=== PATIENT | female | born 1940 | race Caucasian/White ===

== ENCOUNTER 2016-06-23 08:47 | Emergency (ER) | payer OTHER, MEDICARE ==
[2016-06-23] MEDS ORDERED: NS 1,000 ML IV ONE (09:02)
[2016-06-23 09:07] LABS: % IMMATURE GRANULYOCYTES 0.2 % (0.0-1.1); ABSOLUTE IMMATURE GRANULOCYTES 0.01 10^3/uL (0.00-0.10); ADD DIFF? NO; ADD MORPH? NO; ADD SCAN? NO; ATYPICAL LYMPHOCYTE FLAG 10 (0-99); FRAGMENT RBC FLAG 0 (0-99); HEMATOCRIT 43.4 % (38.0-47.0); HEMOGLOBIN 14.6 g/dL (12.6-16.3); LEFT SHIFT FLG 0 (0-99); LIPEMIA HEMOLYSIS FLAG 80 (0-99); MEAN CELL HEMOGLOBIN 29.9 pg (27.9-34.1); MEAN CELL HEMOGLOBIN CONCENTR. 33.6 g/dL (32.4-36.7); MEAN CELL VOLUME 88.9 fL (81.5-99.8); PLATELET CLUMPS FLAG 0 (0-99); PLATELET COUNT 229 10^3/uL (150-400); RED BLOOD CELL COUNT 4.88 10^6/uL (4.18-5.33); RED CELL DISTRIBUTION WIDTH 12.6 % (11.5-15.2)
--- NOTE | 2016-06-23 09:16 | EDPHY ---
H & P Stated Complaint: Found down at the [facility] Source: Patient Exam Limitations: Other (HPI somewhat limited due to memory impairment) - Personal History Tetanus Vaccine Date: < 10 YEARS - Medical/Surgical History Hx Asthma: No Hx Chronic Respiratory Disease: No Hx Diabetes: No Hx Cardiac Disease: No Hx Renal Disease: No Hx Cirrhosis: No Hx Alcoholism: No Hx HIV/AIDS: No Hx Splenectomy or Spleen Trauma: No Other PMH: Brain metastases status post resection of brain tumor 30 years ago, residual left-sided facial droop, seizure disorder, gait instability, Alzheimer' s, chronic dementia, rt knee replacement, left arthritic knee, aspiration pneumonia, gait instability - Family History Significant Family History: Other (Father had [place], mother had lung cancer) - Social History Smoking Status: Never smoked Alcohol Use: Other (Previous ETOH abuse, none now) Drug Use: None Time Seen by Provider: 06/23/16 09:13 HPI/ROS: HPI: Pleasantly demented 75-year-old female presents to emergency department brought in by EMS from the [facility] where she lives with chief concern she was found down on floor with complaints of dizziness. Patient reports feeling dizzy this morning when she stood up, and falling to the floor. She was down for unknown length of time before a staff member at the [facility] found her. When they found her, her blood pressure was 80/60 standing. EKG was obtained at that time and was normal. Presently, she denies headache, visual changes, neck pain, URI symptoms, shortness of breath, chest pain, abdominal pain, nausea , vomiting, diarrhea, urinary symptoms, back or flank pain, or rash. ROS:10 point review of systems is negative other than as stated in HPI (Maira Morris) - Social History Additional Social History: Lives at the [facility], retired RN, full core (Maira Morris) - Physical Exam Exam: 112/75, 77, 18, 89% room air, 2 L 95% General: Awake, alert, calm, cooperative. No acute distress. Head: Normalocephalic. Atraumatic. Face: Atraumatic EENT: PERRLA. EOMI. No pallor or injection. Anicteric. No nystagmus. No injection. TMs intact bilaterally with normal landmarks. No rhinnorhea, nasal passages clear. Oropharynx without redness, exudates, or lesions. Tonsils 2+ bilaterally, no exudates. Neck: Supple, no midline tenderness. No lymphadenopathy. Full range of motion. No meningismus. Respiratory: Breathing unlabored. Breath sounds with rales right lower lobe, otherwise clear. CV: Chest nontender, atraumatic. Heart rate regular. No murmur, distal pulses 2+ bilaterally. No edema. Brisk cap refill all extremities. GI: Abdomen soft, nontender. Bowel sounds normoactive and positive x4 quadrants. : No suprapubic tenderness. No CVA or flank tenderness. Neuro: Alert. Oriented to person and place. Speech clear. Right sided facial droop. Strength 4+ in all extremities. Sensation intact all extremities. Skin: Skin warm, dry, intact. No rashes, abrasions, or lacerations. Skin turgor normal. Extremities: Full range of motion in all 4 extremities. Strength 5+ all extremities. (Maira Morris) Constitutional: Initial Vital Signs Heart Rate 77 06/23/16 09:19 Respiratory Rate 18 06/23/16 09:19 Blood Pressure 112/75 06/23/16 09:19 O2 Sat (%) 89 L 06/23/16 09:19 O2 Delivery Mode Room Air O2 (L/minute) 2 Allergies/Adverse Reactions: clotrimazole Allergy (Verified 03/26/16 13:10) modafinil [From Provigil] Allergy (Verified 03/26/16 13:10) Home Medications: Medication Instructions Recorded Amoxicillin/Clavulanate Pot 03/26/16 [Augmentin 875 MG TAB (*)] Aspirin 03/26/16 Clobetasol 0.05% 03/26/16 Doc-Q-Lace 03/26/16 Donepezil HCl 03/26/16 Ipratropium 0.03% Nasal 03/26/16 LEVETIRACETAM 03/26/16 Meloxicam 03/26/16 Nadolol 03/26/16 Namenda Xr 03/26/16 Nystatin 03/26/16 Polyethylene Glycol 3350 03/26/16 Preservision Lutein Softgel 03/26/16 SIMVASTATIN 03/26/16 Vitamin D3 03/26/16 Medical Decision Making - Diagnostics Imaging: AP and Lateral Chest 9:10 Indication: Memory problems. Comparison: Two-view chest dated March 26, [address] chest dated January 30, 2016 Findings: Diffuse peribronchial thickening, bronchiectasis and scarring in the right middle lobe and lingula have not significantly changed. No pulmonary edema, consolidation, or effusion has developed. The heart size is upper normal. Impression: 1. No acute process. 2. Chronic airways disease and bronchiectasis suspicious for underlying Mycobacterium avium intracellulare is unchanged. Dictated By: Erick Matute MD \CT Brain Without Contrast 0 924 hours History: Recent fall. Dementia. Impression: 1. Moderate atrophy. 2. No acute hemorrhage, mass effect, or definite acute peripheral infarct. 3. Mild to moderate microvascular ischemic disease. 4. Subtle focus of increased density right inferolateral cerebellum that could be related to previous hemorrhage similar to the prior study. Of note, on the prior MRI exam there are numerous signal voids in the posterior fossa more prominent on the right side possibly from underlying amyloid angiopathy, cavernous hemangiomas, or previous vascular insult. 5. Previous resection left anterolateral occipital bone from previous meningioma resection. Dictated By: Bernard Mclaughlin MD (Maira Morris) ED Course/Re-evaluation: 0915: 75-year-old pleasantly demented female presents to emergency department brought in by EMS having been found down at the [facility] where she lives. When she was found down, she complained of dizziness. Blood pressure standing at that time was 80/60. She reports that she remembers feeling dizzy and falling, but is unsure whether she struck her head. She denies headache presently. No evidence of trauma. IV started. Normal saline hung. Labs, EKG, chest x-ray, urinalysis, CT head without all pending. Patient is a full cor. 0930: Caregiver presents to emergency department and states that patient was fasting for labs. Additionally, she was to have a swallow study today as there is concern she is aspirating. 1040: White count 4510. Basic metabolic pelvic panel unremarkable. Chest x-ray shows chronic airway disease, bronchiectasis, no change from previous x-ray. EKG shows sinus rhythm 68. No evidence of acute ischemia. CT shows nothing acute. Urinalysis negative for UTI. Repeat orthostatics after normal saline show the patient is no longer orthostatic. She is chronically on 2 L O2 nasal cannula, previous ED visit show she has 89% on room air. Patient will be discharged back to the [facility]. (Maira Morris) Differential Diagnosis: Differential diagnosis includes but is not limited to orthostasis, dehydration TIA, CVA, ACS, UTI, pneumonia, metabolic derangement (Maira Morris) Other Provider: PHYSICIAN HISTORY AND PHYSICAL I evaluated and participated in the management of the patient. I also evaluated the patient independently. My co-signature indicates that I have reviewed this chart and I agree with the findings and plan of care as documented. My personal H&P findings include: The patient presents to the ED after an episode of syncope. The patient reportedly had been fasting today for outpatient laboratory studies. She developed an episode of syncope earlier today. The patient has had no history of fever or cough. The patient does have a history of reflux and has had issues with chronic aspiration. She is currently on oxygen at night. The patient denies additional complaints. PHYSICAL EXAM General Appearance: Alert, no distress Eyes: Pupils equal and round no pallor or injection ENT, Mouth: Mucous membranes moist Respiratory: There are no retractions, lungs are clear to auscultation Cardiovascular: Regular rate and rhythm Gastrointestinal: Abdomen is soft and nontender, no masses, bowel sounds normal Neurological: A&O, normal motor function, normal sensory exam, normal cranial nerves Skin: Warm and dry, no rashes Musculoskeletal: Neck is supple nontender Extremities: symmetrical, full range of motion PHYSICIAN MEDICAL DECISION MAKING I evaluated the patient, the patient's lungs are clear to auscultation bilaterally. Her chest x-ray demonstrates no evidence of an obvious infiltrate by my interpretation. The patient has no acute respiratory complaints. The patient does have chronic mild hypoxemia that she takes oxygen as needed for. At this point time she has no fever, no cough or significant respiratory complaints. I see no indication for antibiotics. She is otherwise well- appearing. Her EKG demonstrates no evidence of an arrhythmia. She presents to the ED after a likely vasovagal episode in the setting of hypovolemia from fasting. In the ED she received a L of normal saline. She had no recurrent hypotension or symptoms of syncope. Her outpatient laboratory studies have been sent. She will be discharged home and follow up as scheduled with her primary care provider. (Kelechi Mckeon) - Data Points Laboratory Results: Laboratory Results 06/23/16 08:45 06/23/16 08:45 06/23/16 06/23/16 06/23/16 09:52 08:45 08:00 WBC 4.51 10^3/uL (3.80-9.50) RBC 4.88 10^6/uL (4.18-5.33) Hgb 14.6 g/dL (12.6-16.3) Hct 43.4 % (38.0-47.0) MCV 88.9 fL (81.5-99.8) MCH 29.9 pg (27.9-34.1) MCHC 33.6 g/dL (32.4-36.7) RDW 12.6 % (11.5-15.2) Plt Count 229 10^3/uL (150-400) MPV 10.0 fL (8.7-11.7) Neut % (Auto) 77.0 H % (39.3-74.2) Lymph % (Auto) 8.6 L % (15.0-45.0) [place] % (Auto) 11.1 % (4.5-13.0) Eos % (Auto) 2.4 % (0.6-7.6) Baso % (Auto) 0.7 % (0.3-1.7) Nucleat RBC Rel Count 0.0 % (0.0-0.2) Absolute Neuts (auto) 3.47 10^3/uL (1.70-6.50) Absolute Lymphs (auto) 0.39 L 10^3/uL (1.00-3.00) Absolute Monos (auto) 0.50 10^3/uL (0.30-0.80) Absolute Eos (auto) 0.11 10^3/uL (0.03-0.40) Absolute Basos (auto) 0.03 10^3/uL (0.02-0.10) Absolute Nucleated RBC 0.00 10^3/uL (0-0.01) Immature Gran % 0.2 % (0.0-1.1) Immature Gran # 0.01 10^3/uL (0.00-0.10) PT 12.8 SEC (12.0-15.0) INR 0.97 (0.83-1.16) APTT 30.3 SEC (23.0-38.0) Sodium 141 mEq/L (134-144) Potassium 4.1 mEq/L (3.5-5.2) Chloride 104 mEq/L (97-110) Carbon Dioxide 28 mEq/l (22-31) Anion Gap 9 mEq/L (8-16) BUN 18 mg/dL (7-23) Creatinine 0.6 mg/dL (0.6-1.0) Estimated GFR > 60 Glucose 110 H mg/dL (70-100) Calcium 9.2 mg/dL (8.5-10.4) Total Bilirubin 0.7 mg/dL (0.1-1.4) Triglycerides 114 mg/dL (35-135) Cholesterol 192 mg/dL (140-220) Cholesterol Risk Factr 0.6 (0.2-1.0) LDL Cholesterol, Calc 115 H mg/dL (80-100) LDL Risk Factor 0.8 (0.2-1.0) VLDL Cholesterol 22 mg/dL (8-25) Non-HDL Cholesterol 137 H mg/dL (90-129) HDL Cholesterol 55 mg/dL (40-85) LDL/HDL Ratio 2.09 RATIO (1.00-3.22) Cholesterol/HDL Ratio 3.49 RATIO (1.00-4.44) 25-OH Vitamin D Total Pending TSH Pending Urine Color YELLOW Urine Appearance CLEAR Urine pH 7.0 (5.0-7.5) Ur Specific [place] 1.019 (1.002-1.030) Urine Protein NEGATIVE (NEGATIVE) Urine Ketones NEGATIVE (NEGATIVE) Urine Blood NEGATIVE (NEGATIVE) Urine Nitrate NEGATIVE (NEGATIVE) Urine Bilirubin NEGATIVE (NEGATIVE) Urine Urobilinogen 2.0 H EU (0.2-1.0) Ur Leukocyte Esterase NEGATIVE (NEGATIVE) Ur Culture Indicated? NOT INDICATED (NI) Urine Glucose NEGATIVE (NEGATIVE) Medications Given: Discontinued Medications Sodium Chloride (Ns) 1,000 mls @ 0 mls/hr IV ONCE ONE PRN Reason: Wide Open Stop: 06/23/16 09:03 Last Admin: 06/23/16 09:14 Dose: 1,000 mls Departure - Departure Disposition: Home, Routine, Self-Care Clinical Impression: Dizziness, Orthostasis Chronic dementia Qualifiers: Dementia behavioral disturbance: without behavioral disturbance Qualifier Code : (F03.90) Unspecified dementia without behavioral disturbance Condition: Good Instructions: Dizziness (ED), Hypotension (ED) Additional Instructions: Plan: Follow up with primary care tomorrow for recheck without fail Return to ER for worsening symptoms including dizziness, shortness of breath Referrals: Laura Parekh MD [Primary Care Provider] - As per Instructions
[2016-06-23 09:21] LABS: ANION GAP 9 mEq/L (8-16); CALCIUM 9.2 mg/dL (8.5-10.4); CARBON DIOXIDE 28 mEq/l (22-31); CHLORIDE 104 mEq/L (97-110); CREATININE 0.6 mg/dL (0.6-1.0); GLOMERULAR FILTRATION RATE > 60; GLUCOSE 110 mg/dL (70-100); POTASSIUM 4.1 mEq/L (3.5-5.2); SODIUM 141 mEq/L (134-144)
[2016-06-23 09:22] VITALS: RESP 18
--- NOTE | 2016-06-23 09:49 | CPEKG ---
Heart Rate: 68 RR Interval: 882 P-R Interval: 176 QRSD Interval: 76 QT Interval: 424 QTC Interval: 451 P [place]: 24 QRS [place]: -11 T Wave [place]: 35 EKG Severity - BORDERLINE ECG - EKG Impression: SINUS RHYTHM EKG Impression: BORDERLINE R WAVE PROGRESSION, ANTERIOR LEADS Electronically Signed By: Kelechi Mckeon 23-Jun-2016 10:16:28
--- NOTE | 2016-06-23 10:01 | CT ---
CT Brain Without Contrast 0 924 hours History: Recent fall. Dementia. Technique: Axial computed tomographic images of the brain without contrast. Images were reconstruct ed down to 1.25 mm slice thickness. Dose reduction techniques were utilized. Comparison prior CT study from March 26, 2016 and prior MRI study from July 03, 2014. Findings: Ventricles, cisterns, and sulci are widened consistent with stable mild age-related atroph y. No hydrocephalus, masses, midline shift/herniation, or subdural hematomas. No intraparenchymal hem orrhage or mass effect. There is a stable tiny focus of increased density right inferior lateral cere bellum that could be related to previous hemorrhage or cavernous hemangioma. Stable mild hypodensitie s are seen in the white matter of bilateral cerebral hemispheres. There is no acute peripheral cereb ral infarct seen. Arteriosclerotic calcifications are noted associated with distal ICA in the parase llar location bilaterally. Bone windows demonstrate no displaced fractures. There is stable surgical resection left anterolatera l occipital bone from previous meningioma resection as well as resection left mastoid region. Paranasal sinuses and mastoid air cells are clear. Impression: 1. Moderate atrophy. 2. No acute hemorrhage, mass effect, or definite acute peripheral infarct. 3. Mild to moderate microvascular ischemic disease. 4. Subtle focus of increased density right inferolateral cerebellum that could be related to previous hemorrhage similar to the prior study. Of note, on the prior MRI exam there are numerous signal void s in the posterior fossa more prominent on the right side possibly from underlying amyloid angiopathy , cavernous hemangiomas, or previous vascular insult. 5. Previous resection left anterolateral occipital bone from previous meningioma resection. These findings were discussed by telephone with Maira Morris NP at 0 959 hours.
[2016-06-23 10:06] LABS: BILIRUBIN,TOTAL 0.7 mg/dL (0.1-1.4); INR 0.97 (0.83-1.16); PROTIME(PATIENT) 12.8 SEC (12.0-15.0)
[2016-06-23 10:07] LABS: APTT 30.3 SEC (23.0-38.0)
--- NOTE | 2016-06-23 10:10 | DX ---
AP and Lateral Chest 9:10 Indication: Memory problems. Comparison: Two-view chest dated March 26, [address] chest dated January 30, 2016 Findings: Diffuse peribronchial thickening, bronchiectasis and scarring in the right middle lobe and lingula have not significantly changed. No pulmonary edema, consolidation, or effusion has developed. The heart size is upper normal. Impression: 1. No acute process. 2. Chronic airways disease and bronchiectasis suspicious for underlying Mycobacterium avium intracell ulare is unchanged.
[2016-06-23 10:11] LABS: COLOR YELLOW; LEUKOCYTE ESTERASE,URINE NEGATIVE (NEGATIVE); NITRITE,URINE NEGATIVE (NEGATIVE)
[2016-06-23 10:27] LABS: CHOLESTEROL 192 mg/dL (140-220); CHOLESTEROL/HDL RATIO 3.49 RATIO (1.00-4.44); HIGH DENSITY LIPOPROTEIN 55 mg/dL (40-85); LDL/HDL RATIO 2.09 RATIO (1.00-3.22); LOW DENSITY LIPOPROTEIN 115 mg/dL (80-100); NON-HIGH DENSITY LIPOPROTEIN 137 mg/dL (90-129); TRIGLYCERIDE 114 mg/dL (35-135); VERY LOW DENSITY LIPOPROTEINS 22 mg/dL (8-25)
[2016-06-23 10:43] LABS: VITAMIN D 25-HYDROXY TOTAL 38.9 ng/mL (30-100)
[2016-06-23 11:09] VITALS: BP 122/75; PULSE 74; TEMP 98.8; O2SAT 90
== END 2016-06-23 11:09 | disposition home or self-care (01) ==
LOC: EDUNIT#
DX: I95.1 Orthostatic hypotension (principal); F03.90 Unspecified dementia, unspecified severity, without behavioral disturbance, psychotic disturbance, mood disturbance, and anxiety; Z79.82 Long term (current) use of aspirin

== ENCOUNTER 2016-06-23 20:50 | Inpatient (IN) | payer OTHER, MEDICARE ==
--- NOTE | 2016-06-23 20:57 | EDPHY ---
H & P HPI/ROS: HPI CHIEF COMPLAINT: Generalized weakness, nausea, recurrent falls, seen in the ER earlier HISTORY OF PRESENT ILLNESS: This patient is a 75-year-old female she was recently here in the emergency room early this morning, she has a past medical history for Alzheimer's dementia, seizure, right-sided residual weakness from brain tumor resection years ago pneumonia, aspiration pneumonia, presents back to the emergency room this evening after she is having generalized weakness, and recurrent falls. She lives at the [facility] her caretakers at bedside explains that all day today she has been weak, having a very unsteady gait and falling Re currently. It is noted upon arrival here to the emergency room that she is febrile to 38.4. The patient tells me she has no complaints. Specifically she denies chest pain, shortness of breath, headache, nausea or vomiting. She does complain of generalized weakness. Past Medical History: Alzheimer's dementia, aspiration pneumonia, right-sided weakness residual weakness from brain tumor resection, seizure Past Surgical History:Brain tumor resection 30 years ago Social History: Lives at [facility] Family History: noncontributory ROS REVIEW OF SYSTEMS: A comprehensive 10 point review of systems is otherwise negative aside from elements mentioned in the history of present illness. Exam Constitutional appears dehydrated, triage nursing summary reviewed, vital signs reviewed, awake/alert. Eyes normal conjunctivae and sclera, EOMI, PERRLA. HENT normal inspection, atraumatic, moist mucus membranes, no epistaxis, neck supple/ no meningismus, no raccoon eyes. Respiratory clear to auscultation bilaterally, normal breath sounds, no respiratory distress, no wheezing. Cardiovascular rate normal, regular rhythm, no murmur, no edema, distal pulses normal. Gastrointestinal soft, non-tender, no rebound, no guarding, normal bowel sounds, no distension, no pulsatile mass. Genitourinary no CVA tenderness. Musculoskeletal no midline vertebral tenderness, full range of motion, no calf swelling, no tenderness of extremities, no meningismus, good pulses, neurovascularly intact. Skin pink, warm, & dry, no rash, skin atraumatic. Neurologic right-sided residual weakness, left facial droop at baseline, awake , alert and oriented x 3, AAOx3, moves all 4 extremities equally, motor intact, sensory intact, CN II-XII intact, normal cerebellar, normal vision, normal speech. Psychiatric normal mood/affect. Heme/Lymph/Immune no lymphadenopathy. Differential Diagnosis: Includes but is not limited to in a particular order, electrolyte abnormality, dehydration infection, influenza, pneumonia, generalized weakness, failure to thrive Medical Decision Making: this patient had an IV established, we will obtain blood work, patient had an x-ray, of the chest should be gently hydrated will check urinalysis, patient had a CT scan of the head due to recurrent falls most likely this patient will need to be admitted as this is her 2nd ER visit today she is having trouble ambulating due to generalized weakness, and we currently falling. She also noted this patient is febrile to 38.3. Will work acute febrile illness up. I did review her recent ER visit she did have an x-ray that did not identify a focal pneumonia on her chest she did have a CT scan of her head that was unremarkable she did have a urinalysis that was unremarkable. I will test for influenza. Re-evaluation: ED x-ray chest one view: Negative for acute cardiopulmonary disease. Image interpreted by myself. Specifically no pneumonia. CT scan of the Head without IV contrast The results of the study are negative for acute traumatic injury specifically no bleed or tumor. Atrophy noted. The study was read by Dr. Dillard I viewed the images myself on the PACS system. EKG interpretation by me on record in [employer] system. Impression time of EKG 2210, this is sinus rhythm rate of 79, there is no acute ischemic changes appreciated specifically no ST elevation, ST depression T-wave abnormalities. LVH present. There is not some motion artifact noted V4 V5. 2215: due to this patient's 2nd ER visit for generalized weakness, Recurrent falls. Due to this reason this patient be admitted to the hospital overnight for generalized weakness and recurrent falls. I spoke with the hospitalist service Dr. Jain who agrees to admit this patient. The patient is hemodynamically stable no acute distress. Had a low-grade temperature. Blood cultures been pulled. No indication of infection at this time. Negative influenza. Source: Patient, EMS - Personal History Tetanus Vaccine Date: < 10 YEARS - Medical/Surgical History Hx Asthma: No Hx Chronic Respiratory Disease: No Hx Diabetes: No Hx Cardiac Disease: No Hx Renal Disease: No Hx Cirrhosis: No Hx Alcoholism: No Hx HIV/AIDS: No Hx Splenectomy or Spleen Trauma: No Other PMH: Brain metastases status post resection of brain tumor 30 years ago, residual left-sided facial droop, seizure disorder, gait instability, Alzheimer' s, chronic dementia, rt knee replacement, left arthritic knee, aspiration pneumonia, gait instability - Social History Smoking Status: Never smoked Constitutional: Initial Vital Signs Temperature (C) 38.3 C 06/23/16 20:50 Heart Rate 78 06/23/16 20:50 Respiratory Rate 18 06/23/16 20:50 Blood Pressure 165/93 H 06/23/16 20:50 O2 Sat (%) 98 06/23/16 20:50 O2 Delivery Mode Nasal Cannula O2 (L/minute) 2 Allergies/Adverse Reactions: clotrimazole Allergy (Verified 06/23/16 22:19) modafinil [From Provigil] Allergy (Verified 06/23/16 22:19) Home Medications: Medication Instructions Recorded Acetaminophen [Tylenol 325mg (*)] 650 mg PO Q4H PRN 06/23/16 Amoxicillin 2,000 mg PO PRN PRN 06/23/16 Aspirin EC [Aspirin EC 81 mg (*)] 81 mg PO DAILY 06/23/16 Carboxymethylcell/Hypromellose 1 drop OP HS 06/23/16 [Genteal Gel Drops] Cholecalciferol Vit D3 [Vitamin D3 1,000 units PO DAILY 06/23/16 (*)] Clobetasol Propionate [CLOBETASOL 1 ml TP DAILY 06/23/16 PROPIONATE] Desoximetasone 0.05% [Topicort 1 philip TP BID PRN 06/23/16 0.05% Gel (*)] Docusate Sodium [Colace 100 MG (*)] 100 mg PO BID 06/23/16 Donepezil HCl [Donepezil HCl] 10 mg PO HS 06/23/16 Ipratropium 0.03% Nasal [Atrovent 2 sprays EACHNARE DAILY 06/23/16 0.03% Nasal (*)] Loratadine [Claritin 10 mg] 10 mg PO DAILY PRN 06/23/16 MELOXICAM [Mobic] 7.5 mg PO DAILY 06/23/16 Magnesium Hydroxide [Milk of 30 ml PO DAILY PRN 06/23/16 Magnesia] Memantine HCl [Namenda Xr] 28 mg PO DAILY 06/23/16 Mineral Oil/Petrolatum,White 0.25 inch OP HS 06/23/16 [Systane Nighttime Eye Oint] Nadolol [Nadolol] 10 mg PO DAILY 06/23/16 Nystatin/Triamcin [Mycogen II 1 philip TP BID 06/23/16 Cream] Polyethylene Glycol 3350 [Miralax 17 gm PO DAILY 06/23/16 17 gm (*)] Polyethylene Glycol 3350 [Miralax 17 gm PO DAILY PRN 06/23/16 17 gm (*)] SIMVASTATIN [Zocor] 10 mg PO HS 06/23/16 Vit A/Vit C/Vit E/Zinc/Copper 1 each PO BID 06/23/16 [Preservision Areds Softgel] levETIRACETAM [Levetiracetam] 750 mg PO BID 06/23/16 Medical Decision Making - Data Points Laboratory Results: Laboratory Results 06/24/16 04:23 06/24/16 04:23 Medications Given: Discontinued Medications Acetaminophen (Tylenol) 1,000 mg PO EDNOW ONE Stop: 06/23/16 21:04 Last Admin: 06/23/16 22:03 Dose: 1,000 mg Sodium Chloride (Ns) 1,000 mls @ 0 mls/hr IV ONCE ONE PRN Reason: As Directed Stop: 06/23/16 21:02 Last Admin: 06/23/16 21:51 Dose: 1,000 mls Miscellaneous Medication (Meloxicam [Mobic]) 7.5 mg PO DAILY [facility] Stop: 12/21/16 08:59 Last Admin: 06/24/16 15:00 Dose: Not Given Miscellaneous Medication (Memantine Hcl [Namenda Xr]) 28 mg PO DAILY [facility] Stop: 12/21/16 08:59 Last Admin: 06/24/16 15:00 Dose: Not Given Departure - Departure Disposition: [facility] Clinical Impression: Generalized weakness, Recurrent falls Condition: Fair
[2016-06-23] MEDS ORDERED: NS 1,000 ML IV ONE (21:01)
[2016-06-23] MEDS ORDERED: ACETAMINOPHEN 500 MG TAB PO ONE (21:03)
[2016-06-23 21:22] LABS: % IMMATURE GRANULYOCYTES 0.3 % (0.0-1.1); ABSOLUTE IMMATURE GRANULOCYTES 0.02 10^3/uL (0.00-0.10); ADD DIFF? NO; ADD MORPH? NO; ADD SCAN? NO; ATYPICAL LYMPHOCYTE FLAG 10 (0-99); FRAGMENT RBC FLAG 0 (0-99); HEMATOCRIT 39.9 % (38.0-47.0); HEMOGLOBIN 13.8 g/dL (12.6-16.3); LEFT SHIFT FLG 0 (0-99); LIPEMIA HEMOLYSIS FLAG 90 (0-99); MEAN CELL HEMOGLOBIN 31.1 pg (27.9-34.1); MEAN CELL HEMOGLOBIN CONCENTR. 34.6 g/dL (32.4-36.7); MEAN CELL VOLUME 89.9 fL (81.5-99.8); MEAN PLATELET VOLUME 9.7 fL (8.7-11.7); PLATELET CLUMPS FLAG 0 (0-99); PLATELET COUNT 204 10^3/uL (150-400); RED BLOOD CELL COUNT 4.44 10^6/uL (4.18-5.33); RED CELL DISTRIBUTION WIDTH 12.6 % (11.5-15.2)
[2016-06-23 21:32] LABS: PROTIME(PATIENT) 13.1 SEC (12.0-15.0)
[2016-06-23 21:33] LABS: APTT 31.6 SEC (23.0-38.0)
[2016-06-23 21:42] LABS: ALANINE AMINOTRANSFERASE 31 IU/L (9-52); ALBUMIN 3.4 g/dL (3.5-5.0); ALKALINE PHOSPHATASE 71 IU/L (38-126); ANION GAP 8 mEq/L (8-16); ASPARTATE AMINOTRANSFERASE 30 IU/L (14-46); BILIRUBIN,TOTAL 0.7 mg/dL (0.1-1.4); BILIRUBIN-CONJUGATED 0.4 mg/dL (0.0-0.5); BILIRUBIN-UNCONJUGATED 0.3 mg/dL (0.0-1.1); CALCIUM 8.9 mg/dL (8.5-10.4); CARBON DIOXIDE 28 mEq/l (22-31); CHLORIDE 101 mEq/L (97-110); CREATININE 0.6 mg/dL (0.6-1.0); GLOMERULAR FILTRATION RATE > 60; GLUCOSE 99 mg/dL (70-100); MAGNESIUM 1.8 mg/dL (1.6-2.3); POTASSIUM 3.9 mEq/L (3.5-5.2); SODIUM 137 mEq/L (134-144); TOTAL PROTEIN 6.5 g/dL (6.3-8.2)
[2016-06-23 21:54] LABS: TROPONIN I < 0.012 ng/mL (0-0.034)
[2016-06-23] MEDS ORDERED: ACETAMINOPHEN 650 MG SUPP PR ONE (21:57)
[2016-06-23] MEDS ORDERED: ACETAMINOPHEN 325 MG SUPP PR ONE (21:57)
--- NOTE | 2016-06-23 22:02 | DX ---
Portable AP Upright Chest History: Chest pain in a 75-year-old female; compare to the study performed earlier today at 0 910 ho urs. Findings: The heart and mediastinum are normal. Pulmonary vascularity is normal. No focal pulmonary c onsolidation is identified. Stable mild bronchial thickening is noted.. There is no pleural fluid. A pneumothorax is not identified. Impression: Negative for acute abnormality unchanged from earlier today with findings of mild airways disease noted.
--- NOTE | 2016-06-23 22:12 | CPEKG ---
Heart Rate: 79 RR Interval: 759 P-R Interval: 168 QRSD Interval: 82 QT Interval: 404 QTC Interval: 464 P [place]: 43 QRS [place]: -30 T Wave [place]: 15 EKG Severity - ABNORMAL ECG - EKG Impression: SINUS RHYTHM EKG Impression: PROBABLE LEFT VENTRICULAR HYPERTROPHY EKG Impression: PROBABLE INFERIOR INFARCT, AGE INDETERMINATE Electronically Signed By: Vince Savage 25-Jun-2016 05:38:57
--- NOTE | 2016-06-23 22:14 | CT ---
CT Brain (Without Contrast) History: Altered mental status in a 75-year-old female status post trauma from earlier today. Compar huma to the CT performed this morning at 0 924 hours.. Technique: Axial computed tomographic images of the brain are obtained from the base to the vertex w ithout contrast. Images are obtained at 5 mm thickness and reformatted at 1.5 mm. Sagittal and weiss l reformations are performed and the study is reviewed at multiple window/level settings. Dose reduct ion techniques were utilized. Findings: Ventricles, cisterns, and sulci are widened consistent with atrophy. There is no hydroceph alus, midline shift/herniation, or epidural/subdural hematoma. No intraparenchymal hemorrhage or mass effect is identified. Hypodensities are noted in the periventricular and subcortical white matter bi laterally. No acute cortical ischemia is identified. Cerebrovascular atherosclerosis is identified. P ostoperative changes are seen with resection of a portion of the occipital bone on the left as well a s left temporal bone. Physiologic calcifications are stable. The appearance of the operative bed is u nchanged from the earlier study. Postoperative changes also involve the left globe. Bone windows demo nstrate no displaced fractures. Paranasal sinuses and mastoid air cells are clear. Impression: 1. Negative for acute intracranial abnormality. 2. Postoperative changes in the left occipital and temporal bones. 3. Elderly brain with atrophy and probable white matter small vessel disease. 4. See above report for additional findings. A preliminary report was called to Dr. Ferdinand Rebolledo at 2210 hours in the Emergency Department.
[2016-06-23 23:25] LABS: COLOR YELLOW; LEUKOCYTE ESTERASE,URINE NEGATIVE (NEGATIVE); NITRITE,URINE NEGATIVE (NEGATIVE)
[2016-06-23] MEDS ORDERED: ONDANSETRON 4 MG/2 ML VIAL IVP PRN (23:38)
[2016-06-23] MEDS ORDERED: ONDANSETRON DISINTEGRATING 4 MG TAB PO PRN (23:38)
[2016-06-23] MEDS ORDERED: POLYETHYLENE GLYCOL 3350 17 GM PKT PO PRN (23:40)
[2016-06-23] MEDS ORDERED: DESOXIMETASONE 0.05% TP PRN (23:40)
[2016-06-23] MEDS ORDERED: NON-FORMULARY NEW DRUG (Loratadine [Claritin 10 Mg] 10 MG) PO PRN (23:40)
[2016-06-23] MEDS ORDERED: MAGNESIUM HYDROXIDE 30 ML UDCUP PO PRN (23:40)
[2016-06-23] MEDS ORDERED: NS 1,000 ML IV SCH (23:45)
[2016-06-23] MEDS ORDERED: CETIRIZINE 10 MG TAB PO PRN (23:49)
--- NOTE | 2016-06-24 00:40 | GHP ---
[f rep st] HISTORY AND PHYSICAL DATE OF ADMISSION: 06/23/2016 CHIEF COMPLAINT: General weakness, nausea. 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 She has had multi ple aspiration pneumonias and presents with generalized weakness and recurrent falls. Patient does r eport feeling dizzy. Her blood pressure was low this morning as well. She did present to the emerge ncy room this morning and was given fluids, and caregiver said that patient was fasting for labs and was actually due for a swallow evaluation today. She was orthostatic initially, and then with fluids this resolved. She was discharged and then came back tonight with falls through the day. Patient h as significant dementia and, at this point, has no complaints. She is denying any pain. REVIEW OF SYSTEMS: Limited review of systems is possible due to patient's dementia, but she denies a ny abdominal pain, chest pain, or cough. PAST MEDICAL HISTORY: 1. History of brain tumor with a resection 30 years ago. 2. Alzheimer dementia. 3. Seizure disorder. SOCIAL HISTORY: No smoking. A history of alcohol abuse in the past, but none currently. 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 FAMILY HISTORY: Of a heart attack in her father. Her mother had lung cancer. PHYSICAL EXAM: VITAL SIGNS: Temperature is actually 38.8. Blood pressure is 140/95. Heart rate is 84. Oxygen saturation 99% on 2 L. GENERAL: Patient is well developed, in no apparent distress. H EENT: Nonicteric sclerae. Extraocular movements intact. Moist mucous membranes. NECK: Supple. N o thyromegaly. LUNGS: Good effort. There might be a slight amount of crackles in the left base, bu t otherwise are clear. No wheezes. CARDIOVASCULAR: Regular rate and rhythm. No murmurs or gallops . ABDOMEN: Positive bowel sounds. Soft, nontender, nondistended. No hepatosplenomegaly. EXTREMIT IES: No clubbing, cyanosis, or edema. SKIN: Without rash, dry, intact. NEURO: Alert and oriented x2. Moving all 4 extremities equally. PSYCH: Normal mood and affect. DATA REVIEWED: Labs: CBC is normal with a little bit of a left shift. Chemistry is also normal. T roponin is negative. Liver function tests are normal. UA tonight is negative. Flu swab was negativ e. Chest x-ray, personally reviewed and interpreted, shows no acute pneumonia. Head CT is negative. ASSESSMENT: This is a 75-year-old female presenting with initially orthostatic hypotension, now with falls and low-grade fever. PLAN: 1. Fever of uncertain etiology with a normal UA. She is very prone to aspiration pneumonias, and pe rhaps with a little bit of IV fluids, pneumonia might blossom. I am going to hold off on antibiotics currently, but we will get a chest x-ray in the morning. 2. Weakness. I will continue IV fluids and monitor. 3. History of seizure disorder. No evidence of seizure at this point. 4. Code status: Patient is a full code as noted on her form. /[id number]/MODL
[2016-06-24 04:56] LABS: % IMMATURE GRANULYOCYTES 0.4 % (0.0-1.1); ABSOLUTE IMMATURE GRANULOCYTES 0.02 10^3/uL (0.00-0.10); ADD DIFF? NO; ADD MORPH? NO; ADD SCAN? NO; ATYPICAL LYMPHOCYTE FLAG 0 (0-99); FRAGMENT RBC FLAG 0 (0-99); HEMATOCRIT 37.4 % (38.0-47.0); HEMOGLOBIN 12.6 g/dL (12.6-16.3); LEFT SHIFT FLG 0 (0-99); LIPEMIA HEMOLYSIS FLAG 80 (0-99); MEAN CELL HEMOGLOBIN 30.7 pg (27.9-34.1); MEAN CELL HEMOGLOBIN CONCENTR. 33.7 g/dL (32.4-36.7); MEAN PLATELET VOLUME 9.8 fL (8.7-11.7); PLATELET CLUMPS FLAG 0 (0-99); PLATELET COUNT 166 10^3/uL (150-400); RED BLOOD CELL COUNT 4.11 10^6/uL (4.18-5.33); RED CELL DISTRIBUTION WIDTH 12.8 % (11.5-15.2)
[2016-06-24 05:14] LABS: ANION GAP 6 mEq/L (8-16); CALCIUM 7.9 mg/dL (8.5-10.4); CARBON DIOXIDE 28 mEq/l (22-31); CHLORIDE 109 mEq/L (97-110); CREATININE 0.5 mg/dL (0.6-1.0); GLOMERULAR FILTRATION RATE > 60; GLUCOSE 94 mg/dL (70-100); POTASSIUM 3.6 mEq/L (3.5-5.2); SODIUM 143 mEq/L (134-144)
[2016-06-24] MEDS ORDERED: NON-FORMULARY NEW DRUG (Vit A/Vit C/Vit E/Zinc/Copper [Preservision Areds Softgel] 1 EACH) PO SCH (09:00)
[2016-06-24] MEDS ORDERED: (Memantine Hcl [Namenda Xr] 28 MG) PO SCH (09:00)
[2016-06-24] MEDS ORDERED: LEVETIRACETAM 750 MG PO SCH (09:00)
[2016-06-24] MEDS ORDERED: MELOXICAM 7.5 MG PO SCH (09:00)
[2016-06-24] MEDS: DOCUSATE SODIUM 100 MG CAP PO SCH ×2 (09:52→20:46)
[2016-06-24] MEDS: NADOLOL 20 MG TAB PO SCH (09:52)
[2016-06-24] MEDS: ASPIRIN EC 81 MG TAB PO SCH (09:52)
[2016-06-24] MEDS: PRESERVISION AREDS2 FORMULA EYE VIT 1 EACH PO SCH ×2 (09:52→20:47)
[2016-06-24] MEDS: levETIRAcetam 500 MG TAB PO SCH ×2 (09:55→20:47)
[2016-06-24] MEDS: ERTAPENEM 1 GM in NS 100 ML IV SCH (09:56)
[2016-06-24] MEDS: POLYETHYLENE GLYCOL 3350 17 GM PKT PO SCH ×2 (09:57→10:03)
[2016-06-24] MEDS: NYSTATIN TP SCH ×2 (09:57→20:48)
[2016-06-24] MEDS: TRIAMCINOLONE TP SCH ×2 (09:57→20:48)
[2016-06-24] MEDS: IPRATROPIUM 0.03% NASAL SPRAY EACHNARE SCH (09:58)
[2016-06-24] MEDS: CLOBETASOL 0.05% 25 ML TOPICAL SOLUTION TP SCH (09:59)
[2016-06-24] MEDS: ENOXAPARIN 40 MG/0.4 ML SYR SC SCH (10:00)
--- NOTE | 2016-06-24 12:46 | HOSPPROG ---
Hospitalist Progress Note Assessment/Plan: 75-year-old female presents emergency room with complaints of weakness. This is my 1st encounter with the patient, chart reviewed. Chest x-ray personally reviewed. # fever Likely related to potential aspiration pneumonia Awaiting repeat chest x-ray Patient with wet productive cough Initiate IV Invanz given patient's history of aspiration Per the daughter the patient has been consuming foods that have not been thickened Blood cultures pending # chronic aspiration Speech therapy eval May need swallow study Continue evaluation # Alzheimer's Patient at baseline Return today [facility] as soon as possible # weakness Multifactorial # disposition Unclear given need for further evaluation in the hospital setting Follow repeat chest x-ray Continue IV antibiotics Follow blood culture results Continue PT OT speech therapy Reviewed with daughter at bedside Subjective: Feels fine but is tired today. Denies any pain specifically. No other issues currently. Objective: Vital Signs Temp Pulse Resp BP Pulse Ox 38.3 C H 74 18 129/70 H 97 06/24/16 11:18 06/24/16 11:16 06/24/16 11:16 06/24/16 11:16 06/24/16 11:16 Laboratory Results 06/24/16 04:23 06/24/16 04:23 06/23/16 06/24/16 06/25/16 05:59 05:59 05:59 Intake Total 1450 Balance 1450 PT 13.1 SEC (12.0-15.0) 06/23/16 21:13 INR 1.00 (0.83-1.16) 06/23/16 21:13 - Physical Exam Constitutional: appears nourished, not in pain, chronically ill appearing Eyes: PERRL, anicteric sclera, EOMI Ears, Nose, Mouth, Throat: moist mucous membranes, hearing normal, ears appear normal Cardiovascular: No JVD, No tachycardia, No edema Respiratory: no respiratory distress, no rales or rhonchi, reduced air movement Gastrointestinal: No tenderness, No ascites, No guarding Skin: warm, normal color, No erythema Musculoskeletal: normal joint ROM, no joint effusions, generalized weakness Neurologic: No AAOx3 Psychiatric: not anxious, poor insight, poor judgement, poor memory, No thought process linear ICD10 Worksheet Patient Problems: Problems Problem Status Diagnosed Generalized weakness Acute Recurrent falls Acute Sepsis Acute COPD (chronic obstructive pulmonary disease) Acute Fever Acute Pneumonia Acute
--- NOTE | 2016-06-24 14:39 | DX ---
Portable Chest 1424 History: Possible pneumonia Comparison: June 23, 2016 Findings: There is new left lower lobe consolidation consistent with pneumonia. Heart size and pulmon jennifer vascularity remain normal. Impression: Left lower lobe pneumonia.
[2016-06-24] MEDS: (Memantine Hcl [Namenda Xr] 28 MG) PO SCH (15:29)
[2016-06-24] MEDS: MELOXICAM 7.5 MG PO SCH (15:30)
[2016-06-24] MEDS: DONEPEZIL HCL 5 MG TAB PO SCH (20:46)
[2016-06-24] MEDS: PRAVASTATIN SODIUM 20 MG TAB PO SCH (20:46)
[2016-06-24] MEDS: PETROLAT,WHT/MIN OIL/SOD CHL 3.5 GM OPHT.OINT OP SCH (20:47)
[2016-06-24] MEDS: CARBOXYMETHYLCELLULOSE 1% 0.4 ML DROPERETTE OP SCH (20:47)
[2016-06-24] MEDS ORDERED: PETROLATUM WHITE OP SCH (21:00)
[2016-06-24] MEDS ORDERED: [UNRECOGNIZED DRUG - OTHER] OP SCH (21:00)
[2016-06-24] MEDS ORDERED: CARBOXYMETHYLCELL OP SCH (21:00)
[2016-06-24] MEDS ORDERED: NON-FORMULARY NEW DRUG (Donepezil Hcl [Donepezil Hcl] 10 MG) PO SCH (21:00)
[2016-06-24] MEDS ORDERED: NON-FORMULARY NEW DRUG (Simvastatin [Zocor] 10 MG) PO SCH (21:00)
[2016-06-24] MEDS ORDERED: HYPROMELLOSE OP SCH (21:00)
[2016-06-24] MEDS ORDERED: MINERAL OIL OP SCH (21:00)
[2016-06-24] MEDS: ACETAMINOPHEN 325 MG TAB PO PRN (23:28)
[2016-06-25] MEDS: ENOXAPARIN 40 MG/0.4 ML SYR SC SCH (07:44)
[2016-06-25] MEDS: ERTAPENEM 1 GM in NS 100 ML IV SCH (07:44)
[2016-06-25] MEDS: levETIRAcetam 500 MG TAB PO SCH ×3 (07:44→19:17)
[2016-06-25] MEDS: PRESERVISION AREDS2 FORMULA EYE VIT 1 EACH PO SCH ×3 (07:45→19:16)
[2016-06-25] MEDS: NADOLOL 20 MG TAB PO SCH ×2 (07:45→08:12)
[2016-06-25] MEDS: DOCUSATE SODIUM 100 MG CAP PO SCH ×3 (07:45→19:16)
[2016-06-25] MEDS: ASPIRIN EC 81 MG TAB PO SCH ×2 (07:45→08:08)
[2016-06-25] MEDS: ACETAMINOPHEN 325 MG TAB PO PRN (07:45)
[2016-06-25] MEDS: NYSTATIN TP SCH ×2 (07:49→23:46)
[2016-06-25] MEDS: CLOBETASOL 0.05% 25 ML TOPICAL SOLUTION TP SCH (07:49)
[2016-06-25] MEDS: IPRATROPIUM 0.03% NASAL SPRAY EACHNARE SCH ×2 (07:49→10:03)
[2016-06-25] MEDS: TRIAMCINOLONE TP SCH ×2 (07:49→23:46)
[2016-06-25] MEDS: (Memantine Hcl [Namenda Xr] 28 MG) PO SCH ×2 (07:50→08:12)
[2016-06-25] MEDS: MELOXICAM 7.5 MG PO SCH ×2 (07:50→08:12)
[2016-06-25] MEDS: POLYETHYLENE GLYCOL 3350 17 GM PKT PO SCH (08:08)
[2016-06-25] MEDS ORDERED: ACETAMINOPHEN 120 MG SUPP PR PRN (09:14)
[2016-06-25] MEDS: D5W 1/2 NS 1,000 ML IV SCH ×2 (10:02→10:10)
[2016-06-25] MEDS: ACETAMINOPHEN 650 MG SUPP PR PRN ×3 (10:02→17:05)
[2016-06-25] MEDS: AMPICILLIN/SULBACTAM 3 GM in NS 100 ML IV SCH ×3 (11:35→23:47)
--- NOTE | 2016-06-25 12:17 | HOSPPROG ---
Hospitalist Progress Note Assessment/Plan: 75-year-old female presents emergency room with complaints of weakness. # fever Likely related to pneumonia repeat chest x-ray PNA Patient with wet productive cough Change anitbiotics to zosyn Per the daughter the patient has been consuming foods that have not been thickened Blood cultures preliminarily negative # chronic aspiration Speech therapy eval swallow study postponed due to patient's inability to swallow Continue evaluation NPO Family says no tube feeding # pneumonia Potentially community-acquired with potential component of aspiration Continue Zosyn Consider pulmonary consult if not improving Aggressive respiratory therapy # Alzheimer's Patient at baseline Lives at the [facility] # weakness Multifactorial # disposition Unclear given need for further evaluation in the hospital setting Continue IV antibiotics Continue PT OT speech therapy Reviewed with daughter at bedside May need to consider palliative care patient's condition does not improve Subjective: Patient alert. No specific complaints. Very weak and unable to communicate effectively. Objective: Vital Signs Temp Pulse Resp BP Pulse Ox 36.6 C 90 14 112/65 91 L 06/25/16 12:00 06/25/16 12:00 06/25/16 12:00 06/25/16 12:00 06/25/16 12:00 06/24/16 06/25/16 06/26/16 05:59 05:59 05:59 Intake Total 1200 Output Total 275 Balance 925 PT 13.1 SEC (12.0-15.0) 06/23/16 21:13 INR 1.00 (0.83-1.16) 06/23/16 21:13 - Physical Exam Constitutional: not in pain, chronically ill appearing Eyes: PERRL, anicteric sclera Ears, Nose, Mouth, Throat: moist mucous membranes, hearing normal Cardiovascular: No JVD, No edema Respiratory: no respiratory distress, reduced air movement, rhonchi Gastrointestinal: No tenderness, No ascites Skin: warm, normal color Musculoskeletal: no joint effusions, generalized weakness, No normal joint ROM Neurologic: No AAOx3 Psychiatric: not anxious, poor insight, poor judgement, poor memory, No thought process linear ICD10 Worksheet Patient Problems: Problems Problem Status Diagnosed Generalized weakness Acute Recurrent falls Acute Sepsis Acute COPD (chronic obstructive pulmonary disease) Acute Fever Acute Pneumonia Acute
[2016-06-25] MEDS: guaiFENesin 600 MG TAB.ER PO SCH ×2 (13:28→19:16)
[2016-06-25] MEDS: IPRATROPIUM/ALBUTEROL 3 ML DEYVIAL IH SCH ×3 (16:42→22:45)
[2016-06-25] MEDS: DONEPEZIL HCL 5 MG TAB PO SCH (19:16)
[2016-06-25] MEDS: PRAVASTATIN SODIUM 20 MG TAB PO SCH (19:17)
[2016-06-25] MEDS: PETROLAT,WHT/MIN OIL/SOD CHL 3.5 GM OPHT.OINT OP SCH (23:46)
[2016-06-25] MEDS: CARBOXYMETHYLCELLULOSE 1% 0.4 ML DROPERETTE OP SCH (23:46)
[2016-06-25] MEDS ORDERED: NS 1,000 ML IV ONE (23:57)
[2016-06-26] MEDS: AMPICILLIN/SULBACTAM 3 GM in NS 100 ML IV SCH ×3 (05:24→17:54)
[2016-06-26] MEDS: IPRATROPIUM/ALBUTEROL 3 ML DEYVIAL IH SCH ×3 (06:00→16:36)
--- NOTE | 2016-06-26 07:27 | HOSPPROG ---
Hospitalist Progress Note Assessment/Plan: 75-year-old female PMH pna with multiple previous admissions for the same with last 04/07, sz d/o, previous EtOH (none currently), Alzheimer dementia, presented to emergency room on 06/23 with complaints of weakness and falls. This is my 1st encounter with the patient, chart reviewed. Chest x-ray personally reviewed. ECG personally interpreted demonstrates SR with slow RWP and inf Qs. # LLL pna: started on Invanz Pt kept NPO yesterday due to inability to swallow # fever Currently Afebrile Likely related to potential aspiration pneumonia Repeat CXR shows LLL pna Patient with wet productive cough/ currently undergoing breathing tx Initiate IV Invanz given patient's history of aspiration Blood cultures negative after 24 hours # chronic aspiration Speech therapy eval May need swallow study Continue evaluation # Alzheimer's Patient at baseline Return today [facility] as soon as possible/ awaiting PT/OT evaluations Home Aricept continued # Sz d/o Home Keppra continued # weakness Multifactorial #. 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 Mildly improved appetite. Receiving breathing tx currently. Objective: Vital Signs Temp Pulse Resp BP Pulse Ox 98.4 F 78 16 110/73 89 L 06/26/16 04:00 06/26/16 04:00 06/26/16 04:00 06/26/16 04:00 06/26/16 04:00 06/25/16 06/26/16 06/27/16 05:59 05:59 05:59 Intake Total 1200 Output Total 275 Balance 925 PT 13.1 SEC (12.0-15.0) 06/23/16 21:13 INR 1.00 (0.83-1.16) 06/23/16 21:13 - Physical Exam Constitutional: no apparent distress, appears nourished Eyes: PERRL Ears, Nose, Mouth, Throat: moist mucous membranes Cardiovascular: regular rate and rhythym, no murmur, rub, or gallop Respiratory: reduced air movement Skin: warm, normal color Psychiatric: not anxious ICD10 Worksheet Patient Problems: Problems Problem Status Diagnosed Generalized weakness Acute Recurrent falls Acute Sepsis Acute COPD (chronic obstructive pulmonary disease) Acute Fever Acute Pneumonia Acute
[2016-06-26] MEDS: ASPIRIN EC 81 MG TAB PO SCH (10:42)
[2016-06-26] MEDS: PRESERVISION AREDS2 FORMULA EYE VIT 1 EACH PO SCH ×2 (10:42→19:46)
[2016-06-26] MEDS: TRIAMCINOLONE TP SCH ×2 (10:43→20:36)
[2016-06-26] MEDS: NYSTATIN TP SCH ×2 (10:43→20:36)
[2016-06-26] MEDS: DOCUSATE SODIUM 100 MG CAP PO SCH ×2 (10:44→19:46)
[2016-06-26] MEDS: ENOXAPARIN 40 MG/0.4 ML SYR SC SCH (10:44)
[2016-06-26] MEDS: levETIRAcetam 500 MG TAB PO SCH ×2 (10:45→20:35)
[2016-06-26] MEDS: IPRATROPIUM 0.03% NASAL SPRAY EACHNARE SCH (10:45)
[2016-06-26] MEDS: guaiFENesin 600 MG TAB.ER PO SCH ×2 (10:46→19:47)
[2016-06-26] MEDS: MELOXICAM 7.5 MG PO SCH (10:46)
[2016-06-26] MEDS: NADOLOL 20 MG TAB PO SCH (10:49)
[2016-06-26] MEDS: POLYETHYLENE GLYCOL 3350 17 GM PKT PO SCH (10:49)
[2016-06-26] MEDS: (Memantine Hcl [Namenda Xr] 28 MG) PO SCH ×2 (11:01→11:05)
[2016-06-26] MEDS: CLOBETASOL 0.05% 25 ML TOPICAL SOLUTION TP SCH (12:56)
[2016-06-26] MEDS: D5W 1/2 NS 1,000 ML IV SCH (13:05)
[2016-06-26] MEDS: ACETAMINOPHEN 650 MG SUPP PR PRN (17:54)
[2016-06-26] MEDS: PRAVASTATIN SODIUM 20 MG TAB PO SCH (19:47)
[2016-06-26] MEDS: DONEPEZIL HCL 5 MG TAB PO SCH (20:35)
[2016-06-26] MEDS: PETROLAT,WHT/MIN OIL/SOD CHL 3.5 GM OPHT.OINT OP SCH (20:36)
[2016-06-26] MEDS: CARBOXYMETHYLCELLULOSE 1% 0.4 ML DROPERETTE OP SCH (20:36)
[2016-06-27] MEDS: IPRATROPIUM/ALBUTEROL 3 ML DEYVIAL IH SCH ×4 (00:07→17:10)
[2016-06-27] MEDS: AMPICILLIN/SULBACTAM 3 GM in NS 100 ML IV SCH ×5 (00:41→23:32)
[2016-06-27] MEDS: D5W 1/2 NS 1,000 ML IV SCH (00:41)
[2016-06-27 04:44] LABS: % IMMATURE GRANULYOCYTES 0.4 % (0.0-1.1); ABSOLUTE IMMATURE GRANULOCYTES 0.01 10^3/uL (0.00-0.10); ADD DIFF? NO; ADD MORPH? NO; ADD SCAN? NO; ATYPICAL LYMPHOCYTE FLAG 0 (0-99); FRAGMENT RBC FLAG 0 (0-99); HEMATOCRIT 31.9 % (38.0-47.0); HEMOGLOBIN 10.9 g/dL (12.6-16.3); LEFT SHIFT FLG 40 (0-99); LIPEMIA HEMOLYSIS FLAG 90 (0-99); MEAN CELL HEMOGLOBIN 30.8 pg (27.9-34.1); MEAN CELL HEMOGLOBIN CONCENTR. 34.2 g/dL (32.4-36.7); MEAN CELL VOLUME 90.1 fL (81.5-99.8); MEAN PLATELET VOLUME 9.6 fL (8.7-11.7); PLATELET CLUMPS FLAG 0 (0-99); PLATELET COUNT 130 10^3/uL (150-400); RED BLOOD CELL COUNT 3.54 10^6/uL (4.18-5.33); RED CELL DISTRIBUTION WIDTH 12.6 % (11.5-15.2)
[2016-06-27 04:56] LABS: ANION GAP 5 mEq/L (8-16); CALCIUM 7.7 mg/dL (8.5-10.4); CARBON DIOXIDE 33 mEq/l (22-31); CHLORIDE 104 mEq/L (97-110); CREATININE 0.4 mg/dL (0.6-1.0); GLOMERULAR FILTRATION RATE > 60; GLUCOSE 107 mg/dL (70-100); SODIUM 142 mEq/L (134-144)
[2016-06-27 05:11] LABS: POTASSIUM 2.6 mEq/L (3.5-5.2)
[2016-06-27] MEDS ORDERED: PROTOCOL POTASSIUM 1 DOSE MISC PRN (05:17)
[2016-06-27] MEDS ORDERED: PROTOCOL MAGNESIUM 1 DOSE IV PRN (05:18)
[2016-06-27] MEDS: POTASSIUM Cl (KCl) 100 ML IV SCH ×7 (06:24→23:32)
[2016-06-27 06:39] LABS: POTASSIUM 2.6 mEq/L (3.5-5.2)
[2016-06-27] MEDS: PRESERVISION AREDS2 FORMULA EYE VIT 1 EACH PO SCH ×2 (07:52→22:13)
[2016-06-27] MEDS: DOCUSATE SODIUM 100 MG CAP PO SCH ×2 (07:52→22:13)
[2016-06-27] MEDS: guaiFENesin 600 MG TAB.ER PO SCH ×2 (07:52→22:15)
[2016-06-27] MEDS: ASPIRIN EC 81 MG TAB PO SCH (07:52)
[2016-06-27] MEDS: POLYETHYLENE GLYCOL 3350 17 GM PKT PO SCH (07:53)
[2016-06-27] MEDS: NADOLOL 20 MG TAB PO SCH (07:53)
[2016-06-27] MEDS: MELOXICAM 7.5 MG PO SCH (07:53)
[2016-06-27] MEDS: (Memantine Hcl [Namenda Xr] 28 MG) PO SCH (07:53)
--- NOTE | 2016-06-27 10:47 | HOSPPROG ---
Hospitalist Progress Note Assessment/Plan: 75-year-old female PMH pna with multiple previous admissions for the same with last 04/07, sz d/o, previous EtOH (none currently), Alzheimer dementia, presented to emergency room on 06/23 with complaints of weakness and falls. # LLL pna: started on Invanz Awaiting VFSS today # fever Currently Afebrile Likely related to potential aspiration pneumonia Repeat CXR shows LLL pna Cough improved today On IV Invanz given patient's history of aspiration Blood cultures negative after 24 hours # chronic aspiration Speech therapy eval May need swallow study Continue evaluation # Alzheimer's Patient at baseline per family Home Aricept continued Namenda on hold until cleared to swallow pills # Sz d/o Home Keppra continued # weakness Multifactorial #. 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 Notes pain in scalp region behind R ear. No cp or dyspnea currently. Objective: Vital Signs Temp Pulse Resp BP Pulse Ox 98.3 F 69 16 141/78 H 92 06/27/16 08:00 06/27/16 08:00 06/27/16 08:00 06/27/16 08:00 06/27/16 08:00 Laboratory Results 06/27/16 04:25 06/27/16 04:25 06/26/16 06/27/16 06/28/16 05:59 05:59 05:59 Intake Total 7 Output Total 525 225 Balance 1512 -225 PT 13.1 SEC (12.0-15.0) 06/23/16 21:13 INR 1.00 (0.83-1.16) 06/23/16 21:13 - Physical Exam Constitutional: no apparent distress, appears nourished Eyes: PERRL, anicteric sclera Ears, Nose, Mouth, Throat: moist mucous membranes Cardiovascular: regular rate and rhythym, no murmur, rub, or gallop Respiratory: reduced air movement, bronchial breath sounds, No inspiratory crackles Gastrointestinal: normoactive bowel sounds, soft, non-tender abdomen Genitourinary: no bladder fullness, no bladder tenderness Skin: warm, other (scalp shows appearance of white scales c/w psoriasis) ICD10 Worksheet Patient Problems: Problems Problem Status Diagnosed Generalized weakness Acute Recurrent falls Acute Sepsis Acute COPD (chronic obstructive pulmonary disease) Acute Fever Acute Pneumonia Acute
[2016-06-27] MEDS: levETIRAcetam 500 MG TAB PO SCH ×2 (11:06→20:34)
[2016-06-27] MEDS: NYSTATIN TP SCH ×2 (11:07→21:30)
[2016-06-27] MEDS: TRIAMCINOLONE TP SCH ×2 (11:07→21:30)
[2016-06-27] MEDS: ENOXAPARIN 40 MG/0.4 ML SYR SC SCH (11:07)
[2016-06-27] MEDS: IPRATROPIUM 0.03% NASAL SPRAY EACHNARE SCH (11:07)
[2016-06-27] MEDS: CLOBETASOL 0.05% 25 ML TOPICAL SOLUTION TP SCH (11:07)
[2016-06-27] MEDS ORDERED: POTASSIUM Cl (KCl) 100 ML IV SCH (14:30)
[2016-06-27] MEDS: POTASSIUM Cl (KCl) 40 MEQ in NS 1,000 ML IV SCH (18:13)
[2016-06-27 18:50] LABS: POTASSIUM 3.4 mEq/L (3.5-5.2)
[2016-06-27] MEDS: PETROLAT,WHT/MIN OIL/SOD CHL 3.5 GM OPHT.OINT OP SCH (21:30)
[2016-06-27] MEDS: PRAVASTATIN SODIUM 20 MG TAB PO SCH (22:15)
[2016-06-27] MEDS: DONEPEZIL HCL 5 MG TAB PO SCH (22:15)
[2016-06-28] MEDS: IPRATROPIUM/ALBUTEROL 3 ML DEYVIAL IH SCH ×4 (00:06→17:04)
[2016-06-28] MEDS: AMPICILLIN/SULBACTAM 3 GM in NS 100 ML IV SCH ×4 (05:49→23:28)
[2016-06-28] MEDS: CARBOXYMETHYLCELLULOSE 1% 0.4 ML DROPERETTE OP SCH ×2 (05:52→19:19)
[2016-06-28 06:31] LABS: POTASSIUM 4.3 mEq/L (3.5-5.2)
[2016-06-28] MEDS: NADOLOL 20 MG TAB PO SCH (10:32)
[2016-06-28] MEDS: levETIRAcetam 500 MG TAB PO SCH ×2 (10:33→19:18)
[2016-06-28] MEDS: ENOXAPARIN 40 MG/0.4 ML SYR SC SCH (10:34)
[2016-06-28] MEDS: CLOBETASOL 0.05% 25 ML TOPICAL SOLUTION TP SCH (10:41)
[2016-06-28] MEDS: NYSTATIN TP SCH ×2 (10:42→19:20)
[2016-06-28] MEDS: TRIAMCINOLONE TP SCH ×2 (10:42→19:20)
--- NOTE | 2016-06-28 12:49 | HOSPPROG ---
Hospitalist Progress Note Assessment/Plan: 75-year-old female PMH pna with multiple previous admissions for the same with last 04/07, sz d/o, previous EtOH (none currently), Alzheimer dementia, presented to emergency room on 06/23 with complaints of weakness and falls. Today is my first encounter with the patient/ chart reviewed # LLL pna: had video esophagram today that shows silent aspiration w thin and nectar thickness/ has diminished esophageal peristalsis Unasyn day #4 has hx of brain tumor w residual problems with her left lung/per her daughter, this has some paralysis/causing chronic problems this is the patient's 4th bout of pneumonia in the last 12 months # fever/none since 06/24 Currently Afebrile # chronic aspiration Speech therapy recommends Dysphagia diet # Alzheimer's Patient at baseline per family Aricept and Namenda #anemia follow # Sz d/o keppra # weakness Multifactorial #. Diet: Dysphagia 1 with honey thick liquids DVT ppx: LMWH # disposition: Pending/ will likely need a SNF, but would do better at the [facility] with people she knows/ will further eval in a.m./ plan of care discussed with her daughter, Sheree. Also, spoke with the daughter that her mom is likely to have recurrent aspiration pneumonias/ they would not want any peg tube, etc. Have asked for Palliative care to meet with the family to discuss future options such as re-admissions, Code status, etc. Subjective: Jacki is smiling, no complaints of pain. Objective: Vital Signs Temp Pulse Resp BP Pulse Ox 36.3 C 52 L 16 125/71 H 93 06/28/16 11:41 06/28/16 11:41 06/28/16 11:41 06/28/16 11:41 06/28/16 11:41 Laboratory Results 06/27/16 04:25 06/28/16 04:13 06/27/16 06/28/16 06/29/16 05:59 05:59 05:59 Intake Total 2037 1650 Output Total 525 503 200 Balance 1512 1147 -200 PT 13.1 SEC (12.0-15.0) 06/23/16 21:13 INR 1.00 (0.83-1.16) 06/23/16 21:13 - Physical Exam Constitutional: no apparent distress, appears nourished, not in pain Eyes: PERRL Ears, Nose, Mouth, Throat: hearing normal Cardiovascular: regular rate and rhythym Respiratory: rhonchi (scattered throught lower/ mid lobe on left side only. Diminished on right base/ has loose cough) Gastrointestinal: normoactive bowel sounds Skin: warm Musculoskeletal: no muscle tenderness Neurologic: facial droop (left, but daughter said this is chronic ), other ( alert and oriented to herself and her daughter) Psychiatric: poor judgement, poor memory ICD10 Worksheet Patient Problems: Problems Problem Status Diagnosed Generalized weakness Acute Recurrent falls Acute Sepsis Acute COPD (chronic obstructive pulmonary disease) Acute Fever Acute Pneumonia Acute
--- NOTE | 2016-06-28 13:01 | DX ---
Video Esophagram with Speech Therapy History: Aspiration pneumonia. Comparison: Limited images from video esophagram March 24, 2016. Technique: With the patient in the sitting lateral position, the speech therapist administered barium of various consistencies during continual fluoroscopic observation. Findings: Trace silent aspiration was noted with thin and nectar thickness. Premature spillage was no reilly. Moderate residual material was present in the valleculae and piriform sinuses, contributing to t he aspiration. Primary and secondary esophageal peristalsis are severely diminished, noted to be weak on the previous study as well. The 13-mm barium tablet passed normally. Fluoroscopy time: 2.2 minutes. Dose= 3.4 mGy. Impression: 1. Silent aspiration with thin and nectar thickness. 2. Diminished esophageal peristalsis. Please see speech therapist report and recommendations.
[2016-06-28] MEDS: (Memantine Hcl [Namenda Xr] 28 MG) PO SCH (14:08)
[2016-06-28] MEDS: MELOXICAM 7.5 MG PO SCH (14:10)
[2016-06-28] MEDS: IPRATROPIUM 0.03% NASAL SPRAY EACHNARE SCH (14:15)
[2016-06-28] MEDS: guaiFENesin 600 MG TAB.ER PO SCH ×2 (14:20→19:18)
[2016-06-28] MEDS: PRESERVISION AREDS2 FORMULA EYE VIT 1 EACH PO SCH ×2 (14:20→19:18)
[2016-06-28] MEDS: POLYETHYLENE GLYCOL 3350 17 GM PKT PO SCH (14:21)
[2016-06-28] MEDS: ASPIRIN EC 81 MG TAB PO SCH (14:21)
[2016-06-28] MEDS: DOCUSATE SODIUM 100 MG CAP PO SCH ×2 (14:21→19:21)
[2016-06-28] MEDS: POTASSIUM Cl (KCl) 40 MEQ in NS 1,000 ML IV SCH (17:21)
[2016-06-28] MEDS: DONEPEZIL HCL 5 MG TAB PO SCH ×2 (19:18→19:19)
[2016-06-28] MEDS: PRAVASTATIN SODIUM 20 MG TAB PO SCH (19:18)
[2016-06-28] MEDS: PETROLAT,WHT/MIN OIL/SOD CHL 3.5 GM OPHT.OINT OP SCH (19:21)
[2016-06-28 21:15] LABS: POTASSIUM 3.5 mEq/L (3.5-5.2)
[2016-06-29] MEDS: POTASSIUM Cl (KCl) 100 ML IV SCH ×3 (00:05→02:29)
[2016-06-29] MEDS: IPRATROPIUM/ALBUTEROL 3 ML DEYVIAL IH SCH ×3 (04:06→11:17)
[2016-06-29] MEDS: AMPICILLIN/SULBACTAM 3 GM in NS 100 ML IV SCH ×2 (06:14→12:05)
[2016-06-29 06:37] LABS: MAGNESIUM 1.9 mg/dL (1.6-2.3); POTASSIUM 4.4 mEq/L (3.5-5.2)
[2016-06-29 06:42] LABS: % IMMATURE GRANULYOCYTES 0.3 % (0.0-1.1); ABSOLUTE IMMATURE GRANULOCYTES 0.01 10^3/uL (0.00-0.10); ADD DIFF? NO; ADD MORPH? NO; ADD SCAN? YES; FRAGMENT RBC FLAG 0 (0-99); HEMATOCRIT 32.4 % (38.0-47.0); HEMOGLOBIN 10.8 g/dL (12.6-16.3); LEFT SHIFT FLG 0 (0-99); LIPEMIA HEMOLYSIS FLAG 80 (0-99); MEAN CELL HEMOGLOBIN 29.8 pg (27.9-34.1); MEAN CELL HEMOGLOBIN CONCENTR. 33.3 g/dL (32.4-36.7); MEAN CELL VOLUME 89.3 fL (81.5-99.8); MEAN PLATELET VOLUME 9.9 fL (8.7-11.7); PLATELET CLUMPS FLAG 0 (0-99); PLATELET COUNT 190 10^3/uL (150-400); RED BLOOD CELL COUNT 3.63 10^6/uL (4.18-5.33); RED CELL DISTRIBUTION WIDTH 12.6 % (11.5-15.2)
[2016-06-29 06:44] LABS: ATYPICAL LYMPHOCYTE FLAG 120 (0-99)
[2016-06-29 07:27] LABS: SCAN NEGATIVE
[2016-06-29] MEDS: PRESERVISION AREDS2 FORMULA EYE VIT 1 EACH PO SCH (09:52)
[2016-06-29] MEDS: DOCUSATE SODIUM 100 MG CAP PO SCH (09:52)
[2016-06-29] MEDS: ASPIRIN EC 81 MG TAB PO SCH (09:52)
[2016-06-29] MEDS: ENOXAPARIN 40 MG/0.4 ML SYR SC SCH (09:52)
[2016-06-29] MEDS: NADOLOL 20 MG TAB PO SCH (09:52)
[2016-06-29] MEDS: guaiFENesin 600 MG TAB.ER PO SCH (09:52)
[2016-06-29] MEDS: levETIRAcetam 500 MG TAB PO SCH (09:53)
[2016-06-29] MEDS: POLYETHYLENE GLYCOL 3350 17 GM PKT PO SCH (09:55)
[2016-06-29] MEDS: CLOBETASOL 0.05% 25 ML TOPICAL SOLUTION TP SCH (09:55)
[2016-06-29] MEDS: NYSTATIN TP SCH (09:56)
[2016-06-29] MEDS: TRIAMCINOLONE TP SCH (09:56)
[2016-06-29] MEDS: IPRATROPIUM 0.03% NASAL SPRAY EACHNARE SCH (09:56)
[2016-06-29] MEDS: MELOXICAM 7.5 MG PO SCH (09:58)
[2016-06-29] MEDS: (Memantine Hcl [Namenda Xr] 28 MG) PO SCH (09:59)
[2016-06-29 12:27] VITALS: BP 124/80; PULSE 73; RESP 18; TEMP 98.3; O2SAT 94
--- NOTE | 2016-06-29 13:19 | HOSPPROG ---
Hospitalist Progress Note Assessment/Plan: 75-year-old female PMH pna with multiple previous admissions for the same with last 04/07, sz d/o, previous EtOH (none currently), Alzheimer dementia, presented to emergency room on 06/23 with complaints of weakness and falls. # LLL pna: had video esophagram today that shows silent aspiration w thin and nectar thickness/ has diminished esophageal peristalsis Unasyn day #5 has hx of brain tumor w residual problems with her left lung/per her daughter, this has some paralysis/causing chronic problems this is the patient's 4th bout of pneumonia in the last 12 months # fever/none since 06/24 Currently Afebrile # chronic aspiration Speech therapy recommends Dysphagia diet # Alzheimer's Patient at baseline per family Aricept and Namenda #anemia follow # Sz d/o keppra # weakness Multifactorial #. Diet: Dysphagia 1 with honey thick liquids DVT ppx: LMWH # disposition:appreciate Palliative care's involvement Subjective: Jacki is very happy about being discharged. Objective: Vital Signs Temp Pulse Resp BP Pulse Ox 36.8 C 73 18 124/80 H 94 06/29/16 12:00 06/29/16 12:00 06/29/16 12:00 06/29/16 12:00 06/29/16 12:00 Laboratory Results 06/29/16 04:41 06/29/16 04:41 06/28/16 06/29/16 06/30/16 05:59 05:59 05:59 Intake Total 1650 900 Output Total 503 200 Balance 1147 700 PT 13.1 SEC (12.0-15.0) 06/23/16 21:13 INR 1.00 (0.83-1.16) 06/23/16 21:13 - Physical Exam Constitutional: no apparent distress, appears nourished, not in pain Eyes: PERRL Ears, Nose, Mouth, Throat: hearing normal Cardiovascular: regular rate and rhythym Respiratory: no respiratory distress, reduced air movement (left lobe throughout , but lungs sounds much improved) Skin: warm Musculoskeletal: no muscle tenderness Neurologic: other (alert, oriented to herself and family) Psychiatric: interacting appropriately, poor memory ICD10 Worksheet Patient Problems: Problems Problem Status Diagnosed Generalized weakness Acute Recurrent falls Acute Sepsis Acute COPD (chronic obstructive pulmonary disease) Acute Fever Acute Pneumonia Acute
--- NOTE | 2016-06-29 13:25 | PDIAF ---
- Diagnosis Diagnosis: left lower lobe pna/ aspiration, alzheimers Code Status: Do Not Resuscitate - Medication Management Discharge Medications: Medications to Continue on Transfer Acetaminophen [Tylenol 325mg (*)] 650 mg PO Q4H PRN 06/23/16 [Last Taken Unknown ] Aspirin EC [Aspirin EC 81 mg (*)] 81 mg PO DAILY 06/23/16 [Last Taken Unknown] Carboxymethylcell/Hypromellose [Genteal Gel Drops] 1 drop OP HS 06/23/16 [Last Taken Unknown] Cholecalciferol Vit D3 [Vitamin D3 (*)] 1,000 units PO DAILY 06/23/16 [Last Taken Unknown] Clobetasol Propionate [CLOBETASOL PROPIONATE] 1 ml TP DAILY 06/23/16 [Last Taken Unknown] Desoximetasone 0.05% [Topicort 0.05% Gel (*)] 1 philip TP BID PRN 06/23/16 [Last Taken Unknown] Docusate Sodium [Colace 100 MG (*)] 100 mg PO BID 06/23/16 [Last Taken Unknown] Donepezil HCl 10 mg PO HS 06/23/16 [Last Taken Unknown] Ipratropium 0.03% Nasal [Atrovent 0.03% Nasal (*)] 2 sprays EACHNARE DAILY 06/23 [Last Taken Unknown] Loratadine [Claritin 10 mg] 10 mg PO DAILY PRN 06/23/16 [Last Taken Unknown] MELOXICAM [Mobic] 7.5 mg PO DAILY 06/23/16 [Last Taken Unknown] Magnesium Hydroxide [Milk of Magnesia] 30 ml PO DAILY PRN 06/23/16 [Last Taken Unknown] Memantine HCl [Namenda Xr] 28 mg PO DAILY 06/23/16 [Last Taken Unknown] Mineral Oil/Petrolatum,White [Systane Nighttime Eye Oint] 0.25 inch OP HS [Last Taken Unknown] Nadolol 10 mg PO DAILY 06/23/16 [Last Taken Unknown] Nystatin/Triamcin [Mycogen II Cream] 1 philip TP BID 06/23/16 [Last Taken Unknown] Polyethylene Glycol 3350 [Miralax 17 gm (*)] 17 gm PO DAILY 06/23/16 [Last Taken Unknown] Polyethylene Glycol 3350 [Miralax 17 gm (*)] 17 gm PO DAILY PRN 06/23/16 [Last Taken Unknown] SIMVASTATIN [Zocor] 10 mg PO HS 06/23/16 [Last Taken Unknown] Vit A/Vit C/Vit E/Zinc/Copper [Preservision Areds Softgel] 1 each PO BID [Last Taken Unknown] levETIRACETAM [Levetiracetam] 750 mg PO BID 06/23/16 [Last Taken Unknown] Amoxicillin/Clavulanate Pot [Augmentin 875 MG TAB (*)] 875 mg PO BID #7 tab 12/06 [Last Taken Unknown] Ipratropium/Albuterol [Duoneb (*)] 3 ml IH Q6HRS #0 deyvial 06/29/16 [Last Taken Unknown] guaiFENesin [Mucinex 600 MG (*)] 1,200 mg PO BID #0 tab.er 06/29/16 [Last Taken Unknown] Discharge Medications: Refer to the Discharge Home Medication list for PRN reason. - Orders Services needed: Physical Therapy, Occupational Therapy, Speech Language Pathologist Diet Texture: Dysphagia 1 - Pureed, Honey Thick Liquids, Non Oral Meds Additional: Patient at high risk of aspiration/ up in chair for all meals - Labs/Radiology BMP Date: 07/02/15 CBC Date: 07/02/15 - Follow Up Care Current Providers and Referrals: Laura Parekh MD [Primary Care Provider] - As per Instructions
--- NOTE | 2016-06-29 16:08 | PDPCPN ---
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 This is her 4th hospitalization in the past 6 months for aspiration PNA. On admission found to have repeated asp PNA, started on antibiotics with clinical improvement. Palliative care consulted for complex medical decision making. Met with daughter Yesenia outside of the room today. She stated she was able to start talking with her mother about her end of life decisions. She stated her mother has always made it very clear she would not want resuscitation or be "prolonged by a feeding tube". Yesenia has questions about how to continue to speak with her mother about her wishes. Yesenia stated she feels her mother's quality of life includes swimming, being with her family, and [facility]. We discussed different options including hospice care with pleasure feeding of accepting risk of aspiration. Yesenia stated she has spoken with her sister and feel they are on the same page to focus more on quality of life. Yesenia had questions about when do you stop treating for future infections. We reviewed the path of repeated aspirations and focus on quality of life at the end of life is an individual decision based on what matters most. Yesenia feels her mom is doing better today and "almost back to herself" and feels at this point with her goals continued rehab to help her get a little stronger is best in line. Assessment: Physical: - Pain: none - tylenol PRN - Dysphagia - speech following - asp precautions Emotional/psychological: Confusion: maintain normal routines Advanced Care Planning: Is patient decisional?: No Code Status: DNR- per billy Patterson MD POA: daughters Yesenia and Sheree are MDPOA. Plan: Discharge to [facility] for rehab. Family is continuing conversations about next steps and whether to re hospitalization for future asp PNA. MOST form given to review. 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 Son is mentally challenged but visits. Medication list reviewed ROS: General: fatigue, weakness ENT: dysphagia Resp: cough GI: poor appetite : negative MS: negative Skin: negative Neuro: negative Psych: confusion Functional assessment: PPS: 60% Functional status: need assistance with ADLs. Vital Signs Temp Pulse Resp BP Pulse Ox 36.8 C 73 18 124/80 H 94 06/29/16 12:00 06/29/16 12:00 06/29/16 12:00 06/29/16 12:00 06/29/16 12:00 Laboratory Results 06/29/16 04:41 06/29/16 04:41 06/28/16 06/29/16 06/30/16 05:59 05:59 05:59 Intake Total 1650 900 Output Total 503 200 Balance 1147 700 PT 13.1 SEC (12.0-15.0) 06/23/16 21:13 INR 1.00 (0.83-1.16) 06/23/16 21:13 Physical Exam - Physical Exam General Appearance: alert, no apparent distress Skin: normal color, warm/dry Extremities: No pedal edema Neuro/Psych: alert, other (some confusion ) ICD10 Worksheet Patient Problems: Problems Problem Status Diagnosed Generalized weakness Acute Palliative care encounter Acute Recurrent falls Acute Sepsis Acute COPD (chronic obstructive pulmonary disease) Acute Fever Acute Pneumonia Acute - ICD10 Problem Qualifiers (1) Palliative care encounter
--- NOTE | 2016-06-29 18:42 | GDS ---
[f rep st] DISCHARGE SUMMARY DISCHARGE DIAGNOSES: 1. Left lower lobe pneumonia. 2. Fever. 3. Chronic aspiration. 4. Alzheimer's. 5. Anemia. 6. Seizure disorder. 7. Weakness. CONSULTATIONS: Palliative care, Kathy Lund, nurse practitioner. BRIEF HISTORY: The patient is a 75-year-old female with history of Alzheimer dementia, as well as a seizure disorder. She has residual right-sided weakness from a brain tumor. She has had multiple aspiration pneumonias. She presented in the emergency room with general weakness and recurrent falls. In the ER, it was noted that she had a fever. She had a normal urinalysis. Chest x-ray was performed. This showed a left lower lobe pneumonia. She was seen and evaluated by a speech therapist. She had a video esophagram that showed silent aspiration with nectar thickness. She also has diminished esophageal peristalsis. She was started on a dysphagia diet. She will be discharged today to rehab/[facility], and further follow up with her primary care provider. HOSPITAL COURSE: 1. Left lower lobe pneumonia. She was treated with Unasyn. She will get several days of Augmentin. In talking with her family, she has a history of brain tumor that also has affected her left lung. Per her daughter, she has had some paralysis that has caused chronic problems. This is her 4th bout of pneumonia. The family met with the palliative care team to further discuss future admissions and treatment options. They were given the MOST form. 2. Fever, none since June 24. 3. Chronic aspiration. Continue her on a dysphagia diet. 4. Alzheimer's. On Aricept and Namenda, at her baseline. 5. Anemia, stable. 6. Seizure disorder. Keppra. 7. Weakness. Was evaluated by Speech Therapy, Physical Therapy and Occupational Therapy. Recommendation is to go to a rehab facility for strengthening. PENDING LABS AND TESTS: None. CONDITION AT DISCHARGE: Stable. Blood pressure is 124/80, heart rate 73, respiratory rate is 18, O2 saturation on 2 L is 94%. Temperature is 36.8 Celsius. MEDICATIONS AT DISCHARGE: Please see the EMR. DISCHARGE INSTRUCTIONS: 1. Follow up with Dr. Parekh as an outpatient to further discuss treatment options. 2. If she has fever, chills, chest pain, shortness of breath and the family wishes further treatment, to return to the emergency room. Greater than 30 minutes discharging and coordinating care. /[id number]/MODL MTDD
== END 2016-06-29 16:26 | DRG 179 ==
LOC: EDUNIT# → F3E 23:20 → OBSVTOIN 06-24 12:48 → F3E 06-28 05:42
PROVIDERS: ADMIT Internal Medicine; ATTEND Internal Medicine
DX: J69.0 Pneumonitis due to inhalation of food and vomit (principal); G30.9 Alzheimer's disease, unspecified; F02.80 Dementia in other diseases classified elsewhere, unspecified severity, without behavioral disturbance, psychotic disturbance, mood disturbance, and anxiety; G40.909 Epilepsy, unspecified, not intractable, without status epilepticus; D64.9 Anemia, unspecified; E78.5 Hyperlipidemia, unspecified; I10 Essential (primary) hypertension; R13.10 Dysphagia, unspecified; Z87.01 Personal history of pneumonia (recurrent); Z85.841 Personal history of malignant neoplasm of brain; Z96.651 Presence of right artificial knee joint; Z80.1 Family history of malignant neoplasm of trachea, bronchus and lung
CPT/HCPCS: 92526-GN; 92610-GN; 92611-GN; 97116-GP; 97161-GP; 97165-GO; 97530-GO; G8978-GP-CK; G8979-GP-CI; G8987-GO-CK; G8988-GO-CJ; G8996-GN-CJ; G8996-GN-CK; G8997-GN-CI; G8997-GN-CK; G8998-GN-CK; J0295; J1335; J1650

== ENCOUNTER 2018-06-29 17:08 | Inpatient (IN) | payer OTHER, MEDICARE ==
--- NOTE | 2018-06-29 17:19 | EDPHY ---
H & P Time Seen by Provider: 06/29/18 17:10 HPI/ROS: CHIEF COMPLAINT: Decreased oxygen and lethargy HISTORY OF PRESENT ILLNESS: Patient has a history of COPD and aspiration per previous H&P. Presents with 3 days of worsening lethargy and low oxygen, the patient denies cough or shortness of breath. She just feels a little bit tired. REVIEW OF SYSTEMS: Eye: no change in vision ENT: no sore throat Cardiac: no chest pain or syncope Pulmonary: HPI Abdomen: no vomiting, diarrhea, abdominal pain Musculoskeletal: no back pain Skin: no rash Neuro: Chronic facial asymmetry after previous brain tumor Constitutional: no fever : no urinary symptoms A comprehensive 10 point review of systems and further history is however limited by the patient's Alzheimer's. PAST MEDICAL HISTORY: Discharge summary dated 06/29/2016 personally reviewed includes seizure disorder, Alzheimer's, chronic aspiration. She also has a history of a brain tumor with some chronic facial weakness Social history: Lives at the [facility] General Appearance: Alert and conversant, cooperative. Eyes: No scleral icterus. ENT, Mouth: Normal mucous membranes. Respiratory: Rhonchi and crackles right greater than left but speaks in full sentences, saturation 85% on room air, some rhonchi and wheezing bilaterally. Cardiovascular: Regular rate and rhythm. Gastrointestinal: Abdomen is soft and non tender. Neurological: Alert, poor short-term memory, facial asymmetry, normal motor and sensory in extremities. Skin: Warm and dry, no rashes. Musculoskeletal: No peripheral edema. Psychiatric: Not agitated. Emergency Department course/MDM: Nasal cannula oxygen. Chest x-ray and influenza, labs ordered. Frances. 192: Results discussed with the patient and her daughter; the plan for steroids and nebulizer treatments, supplemental oxygen. X-ray personally interpreted does not show pneumonia. The Tamiflu if influenza is positive. CT angiogram if D-dimer is positive. 193: Rashawn to admit; radiologist interprets xray as LLL airspace disease. History of aspiration, will treat empirically for aspiration. Does not have SIRS criteria in the ED. 2015: D-dimer negative, low pretest probability for pulmonary embolism. Smoking Status: Never smoked Constitutional: Initial Vital Signs Temperature (C) 37.2 C 06/29/18 17:16 Heart Rate 83 06/29/18 17:16 Respiratory Rate 18 06/29/18 17:16 Blood Pressure 148/97 H 06/29/18 17:16 O2 Sat (%) 94 06/29/18 17:16 O2 Delivery Mode Room Air O2 (L/minute) 2 Allergies/Adverse Reactions: clotrimazole Allergy (Verified 06/23/16 22:19) modafinil [From Provigil] Allergy (Verified 06/23/16 22:19) Home Medications: Medication Instructions Recorded Acetaminophen [Tylenol 325mg (*)] 650 mg PO Q4H PRN 06/23/16 Aspirin EC [Aspirin EC 81 mg (*)] 81 mg PO DAILY 06/23/16 Cholecalciferol Vit D3 [Vitamin D3 1,000 units PO DAILY 06/23/16 (*)] Desoximetasone 0.05% [Topicort 1 philip TP BID PRN 06/23/16 0.05% Gel (*)] Docusate Sodium [Colace 100 MG (*)] 100 mg PO BID 06/23/16 Donepezil HCl 10 mg PO HS 06/23/16 Ipratropium 0.03% Nasal [Atrovent 2 sprays EACHNARE DAILY 06/23/16 0.03% Nasal (*)] Loratadine [Claritin 10 mg] 10 mg PO DAILY PRN 06/23/16 MELOXICAM [Mobic] 7.5 mg PO DAILY 06/23/16 Magnesium Hydroxide [Milk of 30 ml PO DAILY PRN 06/23/16 Magnesia] Memantine HCl [Namenda Xr] 28 mg PO DAILY 06/23/16 Nadolol 10 mg PO DAILY 06/23/16 Polyethylene Glycol 3350 [Miralax 17 gm PO DAILY 06/23/16 17 gm (*)] Polyethylene Glycol 3350 [Miralax 17 gm PO DAILY PRN 06/23/16 17 gm (*)] SIMVASTATIN [Zocor] 10 mg PO HS 06/23/16 Vit A/Vit C/Vit E/Zinc/Copper 1 each PO BIDPC 06/23/16 [Preservision Areds Softgel] levETIRACETAM [Levetiracetam] 750 mg PO BIDPC 06/23/16 Albuterol [Proventil Neb] 3 ml IH QID 06/29/18 [place] Saline Nasal Gel 1 philip EACHNARE PRN PRN 06/29/18 Calcipotriene 20 - 25 drops TP AD 06/29/18 Calcipotriene [Dovonex] 1 philip TP AD 06/29/18 Carbamide Peroxide [Murine Ear 5 - 10 drops EACHEAR BID PRN 06/29/18 Drops] Carboxymethylcell/Hypromellose 1 drop LEFTEYE PRN PRN 06/29/18 [Cvs Lubricant Gel Eye Drops] Carboxymethylcellulose Sodium 2 drops EACHEYE HS 06/29/18 [Refresh Liquigel] Clobetasol 0.05% [Temovate Topical 1 philip TP BID PRN 06/29/18 Solution (RX)] Clobetasol 0.05% [Temovate Topical 5 - 10 drops TP AD 06/29/18 Solution (RX)] Clobetasol 0.05% [Temovate Topical 20 - 25 drops TP BID 06/29/18 Solution (RX)] [place] Tar [T-Gel] 1 philip TP DAILY 06/29/18 Cromolyn Sodium 1 drop EACHEYE QID PRN 06/29/18 Docosanol [Abreva (*)] 1 philip TP DAILY PRN 06/29/18 Fluocinolone Acetonide Oil 2 drops EACHEAR BID PRN 06/29/18 [Dermotic] Gabapentin [Neurontin 300 MG (*)] 300 mg PO HS 06/29/18 Gly/Dimeth/Petrolat,Wht/Water 1 philip TP DAILY 06/29/18 [AVEENO INTENSE RELIEF CREAM] Hydrogen Peroxide [Hydrogen 1 ml EACHEAR .3X/WK 06/29/18 Peroxide (OTC)] Ipratropium/Albuterol [Duoneb (*)] 3 ml IH TID PRN 06/29/18 Ketoconazole 2% [Nizoral Shampoo 1 philip TP DAILY 06/29/18 (*)] Mag Hydrox/Aluminum Hyd/Simeth 30 ml PO Q6HRS PRN 06/29/18 [Antacid Anti-Gas Liquid] Menthol/Camphor [Sarna] 1 philip TP DAILY PRN 06/29/18 Polyvinyl Alcohol/Povidone/Pf 1 drop EACHEYE PRN PRN 06/29/18 [Refresh Classic Eye Drops] Triamcinolone 0.1% [Triamcinolone 1 philip TP AD 06/29/18 0.1% Cream (*)] Triamcinolone 0.1% [Triamcinolone 1 philip TP BID PRN 06/29/18 0.1% Cream (*)] Trolamine Salicylate/Aloe Vera 1 philip TP TID PRN 06/29/18 [Aspercreme 10% Cream] guaiFENesin [Mucinex 600 MG (*)] 600 mg PO BID PRN 06/29/18 Medical Decision Making - Diagnostics Imaging Results: Imaging Impressions Chest X-Ray 06/29/18 17:23 Impression: Mild airspace disease at the left lung base. Imaging: I viewed and interpreted images myself Differential Diagnosis: Differential considered including but not limited to community-acquired pneumonia, aspiration pneumonia, influenza, pulmonary edema, CHF. - Data Points Laboratory Results: Laboratory Results 06/29/18 17:47 06/29/18 17:47 06/29/18 06/29/18 06/29/18 19:33 18:25 17:47 WBC RBC Hgb Hct MCV MCH MCHC RDW Plt Count MPV Neut % (Auto) Lymph % (Auto) Pitkin % (Auto) Eos % (Auto) Baso % (Auto) Nucleat RBC Rel Count Absolute Neuts (auto) Absolute Lymphs (auto) Absolute Monos (auto) Absolute Eos (auto) Absolute Basos (auto) Absolute Nucleated RBC Immature Gran % Immature Gran # RBC/WBC/PLT Morphology Platelet Estimate PT 13.5 SEC SEC (12.0-15.0) INR 1.01 (0.83-1.16) APTT 33.1 SEC SEC (23.0-38.0) D-Dimer 0.39 ug/mLFEU ug/mLFEU (0.00-0.50) VBG Lactic Acid 1.0 mmol/L mmol/L (0.7-2.1) Sodium 136 mEq/L mEq/L (135-145) Potassium 4.2 mEq/L mEq/L (3.5-5.2) Chloride 103 mEq/L mEq/L (97-110) Carbon Dioxide 29 mEq/l mEq/l (22-31) Anion Gap 4 mEq/L L mEq/L (6-14) BUN 17 mg/dL mg/dL (7-23) Creatinine 0.6 mg/dL mg/dL (0.6-1.0) Estimated GFR > 60 Glucose 106 mg/dL H mg/dL (70-100) Calcium 9.2 mg/dL mg/dL (8.5-10.4) Total Bilirubin 0.5 mg/dL mg/dL (0.1-1.4) 06/29/18 17:47 WBC 6.73 10^3/uL 10^3/uL (3.80-9.50) RBC 4.33 10^6/uL 10^6/uL (4.18-5.33) Hgb 13.1 g/dL g/dL (12.6-16.3) Hct 39.1 % % (38.0-47.0) MCV 90.3 fL fL (81.5-99.8) MCH 30.3 pg pg (27.9-34.1) MCHC 33.5 g/dL g/dL (32.4-36.7) RDW 13.1 % % (11.5-15.2) Plt Count 230 10^3/uL 10^3/uL (150-400) MPV 9.9 fL fL (8.7-11.7) Neut % (Auto) 78.5 % H % (39.3-74.2) Lymph % (Auto) 7.9 % L % (15.0-45.0) Pitkin % (Auto) 11.0 % % (4.5-13.0) Eos % (Auto) 2.2 % % (0.6-7.6) Baso % (Auto) 0.3 % % (0.3-1.7) Nucleat RBC Rel Count 0.0 % % (0.0-0.2) Absolute Neuts (auto) 5.28 10^3/uL 10^3/uL (1.70-6.50) Absolute Lymphs (auto) 0.53 10^3/uL L 10^3/uL (1.00-3.00) Absolute Monos (auto) 0.74 10^3/uL 10^3/uL (0.30-0.80) Absolute Eos (auto) 0.15 10^3/uL 10^3/uL (0.03-0.40) Absolute Basos (auto) 0.02 10^3/uL 10^3/uL (0.02-0.10) Absolute Nucleated RBC 0.00 10^3/uL 10^3/uL (0-0.01) Immature Gran % 0.1 % % (0.0-1.1) Immature Gran # 0.01 10^3/uL 10^3/uL (0.00-0.10) RBC/WBC/PLT Morphology TNP Platelet Estimate TNP PT INR APTT D-Dimer VBG Lactic Acid Sodium Potassium Chloride Carbon Dioxide Anion Gap BUN Creatinine Estimated GFR Glucose Calcium Total Bilirubin Medications Given: Discontinued Medications Albuterol (Proventil Neb) 3 ml IH EDNOW ONE Stop: 06/29/18 19:23 Last Admin: 06/29/18 19:38 Dose: 3 ml Albuterol/Ipratropium (Duoneb) 3 ml IH EDNOW ONE Stop: 06/29/18 17:24 Last Admin: 06/29/18 17:56 Dose: 3 ml Ampicillin Sodium/Sulbactam (Sodium 3 gm/ Sodium Chloride) 100 mls @ 200 mls/ hr IV EDNOW ONE PRN Reason: Protocol Stop: 06/29/18 20:03 Last Admin: 06/29/18 19:47 Dose: 100 mls Methylprednisolone Sodium Succinate (Solu-Medrol) 125 mg IVP EDNOW ONE Stop: 06/29/18 19:23 Last Admin: 06/29/18 19:38 Dose: 125 mg Departure - Departure Disposition: [facility] Inpatient Acute Clinical Impression: COPD (chronic obstructive pulmonary disease) Qualifiers: COPD type: COPD with acute exacerbation Qualified Code(s): J44.1 - Chronic obstructive pulmonary disease with (acute) exacerbation Aspiration pneumonia Qualifiers: Aspiration pneumonia type: unspecified Laterality: left Lung location: lower lobe of lung Qualified Code(s): J69.0 - Pneumonitis due to inhalation of food and vomit Condition: Fair
[2018-06-29] MEDS ORDERED: IPRATROPIUM/ALBUTEROL 3 ML DEYVIAL IH ONE (17:23)
[2018-06-29 18:18] LABS: PLATELET COUNT 230 10^3/uL (150-400)
[2018-06-29] MEDS ORDERED: ALBUTEROL 3 ML DEYVIAL IH ONE (19:22)
[2018-06-29] MEDS ORDERED: methylPREDNISolone SOD SUCC 125 MG/2 ML VIAL IVP ONE (19:22)
[2018-06-29] MEDS ORDERED: AMPICILLIN/SULBACTAM 3 GM in NS 100 ML IV ONE (19:34)
[2018-06-29 19:41] LABS: INR 1.01 (0.83-1.16); PROTIME(PATIENT) 13.5 SEC (12.0-15.0)
--- NOTE | 2018-06-29 23:42 | PDGENHP ---
History and Physical - Chief Complaint generalized weakness, hypoxia - History of Present Illness Source-patient with he history of dementia and only able to provide a limited amount of history. EMR was reviewed and case discussed with accepting hospitalist. I also reviewed patient's opening paperwork from her nursing facility at [facility]. HPI-is a very pleasant 77-year-old female with past medical history significant for oxygen-dependent COPD, history of aspiration pneumonia, HLD, HTN, next dementia, seizure disorder following history of brain tumor resection with a residual left facial droop who presents emergency department today from her nursing facility with several days of lethargy malaise. Patient has not had any true fevers/chills or sweats. She did have a temperature reported at 989.8 earlier today and was given a dose of Tylenol. Subsequent temperature is a 100.1. It was also noted that patient's oxygen saturation had declined on to 88 % on her baseline 2 L per oxygen. Patient was also noted to be significantly weak and was not able to sit herself up on the couch. At the present time patient denies any shortness of breath. She does endorse a slight cough but no chest pain. She does feel tired and her only complaint at this time is her chronic right shoulder pain. History Information - Allergies/Home Medication List Allergies/Adverse Reactions: clotrimazole Allergy (Verified 06/23/16 22:19) modafinil [From Provigil] Allergy (Verified 06/23/16 22:19) Home Medications: Acetaminophen [Tylenol 325mg (*)] 650 mg PO Q4H PRN 06/23/16 [Last Taken Unknown ] Aspirin EC [Aspirin EC 81 mg (*)] 81 mg PO DAILY 06/23/16 [Last Taken Unknown] Cholecalciferol Vit D3 [Vitamin D3 (*)] 1,000 units PO DAILY 06/23/16 [Last Taken Unknown] Desoximetasone 0.05% [Topicort 0.05% Gel (*)] 1 philip TP BID PRN 06/23/16 [Last Taken Unknown] Docusate Sodium [Colace 100 MG (*)] 100 mg PO BID 06/23/16 [Last Taken Unknown] Donepezil HCl 10 mg PO HS 06/23/16 [Last Taken Unknown] Ipratropium 0.03% Nasal [Atrovent 0.03% Nasal (*)] 2 sprays EACHNARE DAILY 06/23 [Last Taken Unknown] Loratadine [Claritin 10 mg] 10 mg PO DAILY PRN 06/23/16 [Last Taken Unknown] MELOXICAM [Mobic] 7.5 mg PO DAILY 06/23/16 [Last Taken Unknown] Magnesium Hydroxide [Milk of Magnesia] 30 ml PO DAILY PRN 06/23/16 [Last Taken Unknown] Memantine HCl [Namenda Xr] 28 mg PO DAILY 06/23/16 [Last Taken Unknown] Nadolol 10 mg PO DAILY 06/23/16 [Last Taken Unknown] Polyethylene Glycol 3350 [Miralax 17 gm (*)] 17 gm PO DAILY 06/23/16 [Last Taken Unknown] Polyethylene Glycol 3350 [Miralax 17 gm (*)] 17 gm PO DAILY PRN 06/23/16 [Last Taken Unknown] SIMVASTATIN [Zocor] 10 mg PO HS 06/23/16 [Last Taken Unknown] Vit A/Vit C/Vit E/Zinc/Copper [Preservision Areds Softgel] 1 each PO BIDPC 06/23 [Last Taken Unknown] levETIRACETAM [Levetiracetam] 750 mg PO BIDPC 06/23/16 [Last Taken Unknown] Albuterol [Proventil Neb] 3 ml IH QID 06/29/18 [Last Taken Unknown] Pageton Saline Nasal Gel 1 philip EACHNARE PRN PRN 06/29/18 [Last Taken Unknown] Calcipotriene 20 - 25 drops TP AD 06/29/18 [Last Taken Unknown] Calcipotriene [Dovonex] 1 philip TP AD 06/29/18 [Last Taken Unknown] Carbamide Peroxide [Murine Ear Drops] 5 - 10 drops EACHEAR BID PRN 06/29/18 [ Last Taken Unknown] Carboxymethylcell/Hypromellose [Cvs Lubricant Gel Eye Drops] 1 drop LEFTEYE PRN PRN 06/29/18 [Last Taken Unknown] Carboxymethylcellulose Sodium [Refresh Liquigel] 2 drops EACHEYE HS 06/29/18 [ Last Taken Unknown] Clobetasol 0.05% [Temovate Topical Solution (RX)] 1 philip TP BID PRN 06/29/18 [ Last Taken Unknown] Clobetasol 0.05% [Temovate Topical Solution (RX)] 5 - 10 drops TP AD 06/29/18 [ Last Taken Unknown] Clobetasol 0.05% [Temovate Topical Solution (RX)] 20 - 25 drops TP BID 06/29/18 [Last Taken Unknown] [place] Tar [T-Gel] 1 philip TP DAILY 06/29/18 [Last Taken Unknown] Cromolyn Sodium 1 drop EACHEYE QID PRN 06/29/18 [Last Taken Unknown] Docosanol [Abreva (*)] 1 philip TP DAILY PRN 06/29/18 [Last Taken Unknown] Fluocinolone Acetonide Oil [Dermotic] 2 drops EACHEAR BID PRN 06/29/18 [Last Taken Unknown] Gabapentin [Neurontin 300 MG (*)] 300 mg PO HS 06/29/18 [Last Taken Unknown] Gly/Dimeth/Petrolat,Wht/Water [AVEENO INTENSE RELIEF CREAM] 1 philip TP DAILY 06/29 [Last Taken Unknown] Hydrogen Peroxide [Hydrogen Peroxide (OTC)] 1 ml EACHEAR .3X/WK 06/29/18 [Last Taken Unknown] Ipratropium/Albuterol [Duoneb (*)] 3 ml IH TID PRN 06/29/18 [Last Taken Unknown] Ketoconazole 2% [Nizoral Shampoo (*)] 1 philip TP DAILY 06/29/18 [Last Taken Unknown] Mag Hydrox/Aluminum Hyd/Simeth [Antacid Anti-Gas Liquid] 30 ml PO Q6HRS PRN 12/08 [Last Taken Unknown] Menthol/Camphor [Sarna] 1 philip TP DAILY PRN 06/29/18 [Last Taken Unknown] Polyvinyl Alcohol/Povidone/Pf [Refresh Classic Eye Drops] 1 drop EACHEYE PRN PRN 06/29/18 [Last Taken Unknown] Triamcinolone 0.1% [Triamcinolone 0.1% Cream (*)] 1 philip TP AD 06/29/18 [Last Taken Unknown] Triamcinolone 0.1% [Triamcinolone 0.1% Cream (*)] 1 philip TP BID PRN 06/29/18 [ Last Taken Unknown] Trolamine Salicylate/Aloe Vera [Aspercreme 10% Cream] 1 philip TP TID PRN 06/29/18 [Last Taken Unknown] guaiFENesin [Mucinex 600 MG (*)] 600 mg PO BID PRN 06/29/18 [Last Taken Unknown] I have personally reviewed and updated: family history, medical history, social history, surgical history Past Medical History: Reviewed per EMR and accompanying paperwork from [facility] - Past Medical History Additional medical history: brain tumor s/p resection, residual left facial drooping. dementia. seizure disorder. HTN, HLD. COPD with oxygen dependence at 2 liters/minute,. Psoriasis. History of aspiration pneumonia. Osteoarthritis. Gait instability. Hearing deficit - Surgical History Additional surgical history: Brain tumor resection. Right TKA - Family History Positive for: non-pertinent Additional family history: Mother-lung cancer. Father-mi - Social History Smoking Status: Never smoked Alcohol Use: None Drug Use: None Additional social history: Pt lives at [facility], an assisted living facility. Daughter is involved in her medical care. Cor status-DNR DNI with MOST form completed. Review of Systems Review of Systems: ROS: 10pt was reviewed & negative except for what was stated in HPI & below ( See HPI) Physical Exam Physical Exam: Selected Entries 06/29/18 17:16 Heart Rate 83 Respiratory 18 Rate O2 Sat (%) 94 Temperature (C) 37.2 C Blood Pressure 148/97 H Mean Arterial 114 H Pressure (MAP) O2 (L/minute) 2 O2 Delivery Nasal Cannula Mode Temperature Oral Source Temp Pulse Resp BP Pulse Ox 37.0 C 75 16 147/84 H 96 06/29/18 21:51 06/29/18 21:51 06/29/18 21:51 06/29/18 21:51 06/29/18 21:51 O2 (L/minute) 2 Constitutional: no apparent distress, chronically ill appearing, other (NAD. Pleasant frail elderly female is lying quietly in bed. She is awake.) Eyes: PERRL (Decreased reactivity light bilaterally but symmetric.), anicteric sclera, EOMI, No scleral injection Ears, Nose, Mouth, Throat: moist mucous membranes, poor dentition (Dentition in fair condition.), hard of hearing Cardiovascular: regular rate and rhythym, no murmur, rub, or gallop, other (No nasal discharge.), No edema Peripheral Pulses: 1+: dorsalis-pedis (R), dorsalis-pedis (L) Respiratory: no respiratory distress, no rales or rhonchi, clear to auscultation , reduced air movement (Diminished bibasilarly. Poor inspiratory effort.), No inspiratory crackles, No respiratory distress Gastrointestinal: normoactive bowel sounds, soft, non-tender abdomen, no palpable masses, No distension Genitourinary: no bladder tenderness, No feldman in urethra Skin: warm, normal color, no rashes or abrasions Musculoskeletal: generalized weakness, other (Patient is able to turn on her side. She is not able to sit up independently. She is able to move all extremities while lying in bed but has noted generalized weakness that is symmetric. ) Neurologic: sensation intact bilaterally, facial droop (Left lower facial droop) , No AAOx3 (Patient is oriented to self only. She thinks it is 2018 and that she is at [facility].), No CN II-XII Intact (Tongue deviation and left lower facial drooping) Psychiatric: poor insight, poor memory, other (Patient awake alert and interactive. She is not able to answer all questions accurately.), No agitated Lab Data & Imaging Review 06/29/18 17:47 06/29/18 17:47 WBC 6.73 10^3/uL (3.80-9.50) 06/29/18 17:47 RBC 4.33 10^6/uL (4.18-5.33) 06/29/18 17:47 Hgb 13.1 g/dL (12.6-16.3) 06/29/18 17:47 Hct 39.1 % (38.0-47.0) 06/29/18 17:47 MCV 90.3 fL (81.5-99.8) 06/29/18 17:47 MCH 30.3 pg (27.9-34.1) 06/29/18 17:47 MCHC 33.5 g/dL (32.4-36.7) 06/29/18 17:47 RDW 13.1 % (11.5-15.2) 06/29/18 17:47 Plt Count 230 10^3/uL (150-400) 06/29/18 17:47 MPV 9.9 fL (8.7-11.7) 06/29/18 17:47 Neut % (Auto) 78.5 % (39.3-74.2) H 06/29/18 17:47 Lymph % (Auto) 7.9 % (15.0-45.0) L 06/29/18 17:47 [place] % (Auto) 11.0 % (4.5-13.0) 06/29/18 17:47 Eos % (Auto) 2.2 % (0.6-7.6) 06/29/18 17:47 Baso % (Auto) 0.3 % (0.3-1.7) 06/29/18 17:47 Nucleat RBC Rel Count 0.0 % (0.0-0.2) 06/29/18 17:47 Absolute Neuts (auto) 5.28 10^3/uL (1.70-6.50) 06/29/18 17:47 Absolute Lymphs (auto) 0.53 10^3/uL (1.00-3.00) L 06/29/18 17:47 Absolute Monos (auto) 0.74 10^3/uL (0.30-0.80) 06/29/18 17:47 Absolute Eos (auto) 0.15 10^3/uL (0.03-0.40) 06/29/18 17:47 Absolute Basos (auto) 0.02 10^3/uL (0.02-0.10) 06/29/18 17:47 Absolute Nucleated RBC 0.00 10^3/uL (0-0.01) 06/29/18 17:47 Immature Gran % 0.1 % (0.0-1.1) 06/29/18 17:47 Immature Gran # 0.01 10^3/uL (0.00-0.10) 06/29/18 17:47 RBC/WBC/PLT Morphology TNP 06/29/18 17:47 Platelet Estimate TNP 06/29/18 17:47 PT 13.5 SEC (12.0-15.0) 06/29/18 19:33 INR 1.01 (0.83-1.16) 06/29/18 19:33 APTT 33.1 SEC (23.0-38.0) 06/29/18 19:33 D-Dimer 0.39 ug/mLFEU (0.00-0.50) 06/29/18 19:33 VBG Lactic Acid 1.0 mmol/L (0.7-2.1) 06/29/18 18:25 Sodium 136 mEq/L (135-145) 06/29/18 17:47 Potassium 4.2 mEq/L (3.5-5.2) 06/29/18 17:47 Chloride 103 mEq/L (97-110) 06/29/18 17:47 Carbon Dioxide 29 mEq/l (22-31) 06/29/18 17:47 Anion Gap 4 mEq/L (6-14) L 06/29/18 17:47 BUN 17 mg/dL (7-23) 06/29/18 17:47 Creatinine 0.6 mg/dL (0.6-1.0) 06/29/18 17:47 Estimated GFR > 60 06/29/18 17:47 Glucose 106 mg/dL (70-100) H 06/29/18 17:47 Calcium 9.2 mg/dL (8.5-10.4) 06/29/18 17:47 Total Bilirubin 0.5 mg/dL (0.1-1.4) 06/29/18 17:47 Imaging Review: Upright Chest, PA and Lateral Views, at 6:57 PM Clinical History: 77-year-old female presenting to the ED with dyspnea. Rule out pneumonia. The patient a prior documented history of silent aspiration. Comparison Study: Chest radiography from June 2016. Findings: Oxygen tubing is present. The cardiac and mediastinal silhouette is normal in size. There is mural atherosclerotic calcification of the aortic knob. There is a stable oval-shaped calcified granuloma in the left infrahilar region. There is some patchy airspace disease at the lateral left lung base, suggestive of some subsegmental atelectasis versus minimal infiltrate. There is mild chronic biapical pleural thickening. The trachea is midline. There is no peripheral interstitial edema or pneumothorax. The osseous structures are notable for a mild pectus excavatum configuration. The thoracic vertebral body heights are maintained, with a trace dextrothoracic curvature. Impression: Mild airspace disease at the left lung base. Visualized and Interpreted Chest x-ray results: Yes Chest X-Ray results: infiltrate (Left lower lung) Assessment & Plan Assessment: #pneumonia (Acute) - continue Unasyn at this time given patient's increased risk for aspiration pneumonia. Respiratory PCR is pending. Patient with a previous history of aspiration in setting of persistent left lower facial drooping/weakness. Will need to clarify patient's usual diet. And previous assessment with speech therapy. Patient does not meet SIRS criteria. #COPD (chronic obstructive pulmonary disease) (Acute on chronic) - patient did have some slight hypoxia noted at her assisted living facility. She has been maintaining O2 saturations in the 90s at this time. Will plan to continue steroids and nebulizer treatments as well as supplemental oxygen. Chronic medical issues #Benign essential HTN - blood pressure is slightly elevated. She takes 10 mg not all daily will resume once med rec available. #HLD-resume statin simvastatin #Dementia-resume donepezil and memantine #Seizure disorder-continue gabapentin 300 mg at HS #Osteoarthritis patient complaining of right shoulder pain that is chronic. K- pad and Tylenol p.r.n.. FEN - IV fluid for the 1 L for gentle hydration. Electrolytes are adequate repeat BMP in the morning with fluids bedside swallow eval to ascertain patient' s current status of aspiration. Speech therapy in the morning if patient with symptoms. Will need to clarify patient's history of aspiration and most recent workup. Patient is listed as a DNR DNI with goals of mostly comfort. Further discussion with patient's daughter tomorrow when she is available regarding diet if she fails bedside swallow. PPX - SCDs. Lovenox. Cor status-full Disposition-patient admitted to inpatient status on med [facility] floor for antibiotics and treatment of her COPD exacerbation. Patient is quite weak and at this time anticipate she will require some physical therapy to return her back to her baseline as she receives treatment for her pneumonia and COPD.
[2018-06-30] MEDS ORDERED: ALBUTEROL 3 ML DEYVIAL IH PRN (00:01)
[2018-06-30] MEDS ORDERED: ACETAMINOPHEN 325 MG TAB PO PRN (00:01)
[2018-06-30] MEDS ORDERED: ONDANSETRON DISINTEGRATING 4 MG TAB PO PRN (00:01)
[2018-06-30] MEDS ORDERED: ONDANSETRON 4 MG/2 ML VIAL IVP PRN (00:01)
[2018-06-30] MEDS ORDERED: NS 1,000 ML IV SCH (00:15)
[2018-06-30] MEDS: AMPICILLIN/SULBACTAM 3 GM in NS 100 ML IV SCH ×3 (00:44→14:06)
--- NOTE | 2018-06-30 08:38 | PDMN ---
Medical Necessity Medical necessity: Pt meets IP criteria as of 06/29/2018 per and SHANELLE [id number] ( Pneumonia due to aspiration); est los > 2 mn for ongoing tx and management of acute aspiration pneumonia and acute on chronic COPD exacerbation with increased O2 demand from baseline in an elderly dementia pt; requiring IV ABX, scheduled nebulizers, serial labs, PT/OT, and management of chronic conditions including HTN, HLD, Seizure disorder, and osteoarthritis.
[2018-06-30] MEDS ORDERED: methylPREDNISolone SOD SUCC 125 MG/2 ML VIAL IVP SCH (09:00)
[2018-06-30] MEDS ORDERED: IPRATROPIUM/ALBUTEROL 3 ML DEYVIAL IH SCH (09:00)
[2018-06-30] MEDS ORDERED: ENOXAPARIN 40 MG/0.4 ML SYR SC SCH (09:00)
[2018-06-30 10:51] VITALS: BP 116/67
[2018-06-30] MEDS ORDERED: POLYETHYLENE GLYCOL 3350 17 GM PKT PO SCH (13:30)
[2018-06-30] MEDS ORDERED: (Memantine Hcl [Namenda Xr] 28 MG) PO SCH (13:30)
[2018-06-30] MEDS ORDERED: ASPIRIN EC 81 MG TAB PO SCH (13:30)
[2018-06-30] MEDS ORDERED: CLOBETASOL 0.05% 25 ML TOPICAL SOLUTION TP SCH ×2 (13:30→21:00)
[2018-06-30] MEDS ORDERED: CALCIPOTRIENE TP SCH ×2 (13:30)
[2018-06-30] MEDS ORDERED: NADOLOL 20 MG TAB PO SCH (13:30)
[2018-06-30] MEDS ORDERED: TRIAMCINOLONE 0.1% 15 GM CRTUBE TP SCH (13:30)
--- NOTE | 2018-06-30 14:23 | ASDISCHSUM ---
Discharge Information Plan Status:Home with No Needs Medically Cleared to Leave: Discharge Date: D/C Disposition:Home, Routine, Self-Care ADT D/C Disposition:Home, Routine, Self-Care Projected Discharge Date:06/30/2018 12:00 AM Transportation at D/C:Family Discharge Delay Reason: Follow-Up Date:06/30/2018 12:00 AM Discharge Slot: Final Diagnosis: Placement Information Patient Contact Information Contact Name:AGUS Relationship:Daughter Address:[address] City:[place] Alternate Phone: [facility]/Zip Code:[place] [address] Email: Financial Information Financial Class:Medicare Primary Plan Desc:MEDICARE INPATIENT Primary Plan Number:[id number] Secondary Plan Desc:[employer]/DAVID SUPPLEMENT Secondary Plan Number:[id number] Assessment Information Case Management Discharge Plan Note Case Management Discharge Discharge Order Complete? Answers: Yes Patient to Obtain Answers: via Family Medications Transportation Arranged Answers: Family/Friends Family Notified Answers: Yes Discharge Comments Notes: CM discussed discharge plan with pt and her daughter. pt is returning to the [facility]. No therapies ordered, Pt's family to transport. Family requested meds be filled at Pharmacy here. CM notified MD and RN. No other CM needs identified. Date Signed: 06/30/2018 02:22 PM Electronically Signed By:TAY Sanchez Intervention Information
--- NOTE | 2018-06-30 14:24 | ASMTLACE ---
LACE Length of stay for Answers: Less than 1 day current admission Acuity / Level of Answers: Yes Care: Did the patient have an inpatient admission? Comorbidities - select Answers: Any tumor (including all that apply lymphoma or leukemia) Chronic pulmonary disease Dementia Other Notes: Seizure disorder # of Emergency department Answers: 1-2 visits in the last 6 months Score: 12 Date Signed: 06/30/2018 02:23 PM Electronically Signed By:TAY Sanchez
--- NOTE | 2018-06-30 18:47 | GDS ---
[f rep st] DISCHARGE SUMMARY DISCHARGE DIAGNOSES: 1. Aspiration pneumonia. 2. Chronic obstructive pulmonary disease exacerbation. 3. Hypertension. 4. Dementia. 5. Brain tumor, status post resection, with chronic dysphagia and facial droop. 6. Arshad virus viral bronchitis. HISTORY: The patient is a 77-year-old female with dementia, recurrent aspiration pneumonia due to dy sphagia from a brain tumor resection with residual left facial droop. She presents to the hospital w ith fever, and hypoxemia, and presumed recurrent aspiration pneumonia. She was treated with IV Unasy n. She has a history of COPD and wears oxygen intermittently at home. She was also treated with ellis roids. She rapidly improved. She improved much faster than anticipated, and by the next morning was on room air. All of her lethargy and weakness had resolved, and she was very anxious to discharge b ack to the [facility]. Occupational Therapy saw her and thought she was at her baseline. Speech therap y was offered prior to discharge, but it was declined by her daughter, stating she has a speech thera pist she follows with very closely at the [facility]. DISCHARGE MEDICATIONS: Please see computer record for full detailed list. NEW MEDICATIONS: 1. Prednisone 40 mg p.o. daily for 5 days. 2. Augmentin 875 mg p.o. twice daily for 5 days. ADDITIONAL DISCHARGE INSTRUCTIONS: 1. Discharge back to the [facility]. Reinstituting her therapies as she was getting pr ior to admission. 2. Follow up with primary care. 3. Patient improved much faster than anticipated and was able to go home after only a 1 night hospit al stay. Greater than 30 minutes' time was spent arranging this discharge. Patient was seen and examined by evon boyce day of discharge. /[id number]/MODL
[2018-06-30] MEDS ORDERED: PRESERVISION AREDS2 FORMULA EYE VIT 1 EACH PO SCH (19:00)
[2018-06-30] MEDS ORDERED: levETIRAcetam 500 MG TAB PO SCH ×2 (19:00)
[2018-06-30] MEDS ORDERED: levETIRAcetam 250 MG TAB PO SCH ×2 (19:00)
[2018-06-30] MEDS ORDERED: PRAVASTATIN SODIUM 20 MG TAB PO SCH (21:00)
[2018-06-30] MEDS ORDERED: GABAPENTIN 300 MG CAP PO SCH (21:00)
[2018-06-30] MEDS ORDERED: DONEPEZIL HCL 5 MG TAB PO SCH (21:00)
[2018-06-30] MEDS ORDERED: DOCUSATE SODIUM 100 MG CAP PO SCH (21:00)
[2018-06-30] MEDS ORDERED: CARBOXYMETHYLCELLULOSE SODIUM EACHEYE SCH (21:00)
[2018-07-01] MEDS ORDERED: MELOXICAM 7.5 MG PO SCH (09:00)
[2018-07-01] MEDS ORDERED: IPRATROPIUM 0.03% NASAL SPRAY EACHNARE SCH (09:00)
== END 2018-06-30 16:04 | disposition home or self-care (01) | DRG 178 ==
LOC: EDUNIT# → F2W 20:47
PROVIDERS: ADMIT Family Medicine; ATTEND Family Medicine
DX: J69.0 Pneumonitis due to inhalation of food and vomit (principal); J44.0 Chronic obstructive pulmonary disease with (acute) lower respiratory infection; J44.1 Chronic obstructive pulmonary disease with (acute) exacerbation; I10 Essential (primary) hypertension; F03.90 Unspecified dementia, unspecified severity, without behavioral disturbance, psychotic disturbance, mood disturbance, and anxiety; J20.8 Acute bronchitis due to other specified organisms; B34.2 Coronavirus infection, unspecified; R13.19 Other dysphagia; R29.810 Facial weakness; Z99.81 Dependence on supplemental oxygen; G89.29 Other chronic pain; E78.5 Hyperlipidemia, unspecified; M19.011 Primary osteoarthritis, right shoulder; Z66 Do not resuscitate
CPT/HCPCS: 96365; 97165-GO; J0295; J1650; J2930; J7613